=== PATIENT | female | born 1940 | race Caucasian/White ===

== ENCOUNTER 2017-07-10 23:08 | Emergency (ER) | payer MEDICARE ==
--- NOTE | 2017-07-11 00:55 | ER Document Report ---
ED Extremity Problem, Upper - General Mode of Arrival: Ambulatory Information source: Patient, Relative - daughter - HPI Similar symptoms previously: No Recently seen / treated by doctor: No <BUNNY MELVIN - Last Filed: 07/11/17 01:25> <MEGAN SWENSON - Last Filed: 07/11/17 04:34> - General Chief Complaint: Arm Pain Stated Complaint: RIGHT ARM PAIN Time Seen by Provider: 07/11/17 00:53 Notes: Patient is a 77 year old female presenting to the emergency department for pain to her right elbow and forearm. Patient states she was laying in bed with her right arm facing up and she had the television remote in her hand. Patient states she went to move and when she tried to pronate her right arm she had a sharp pain in her ulnar head. Patient states this happened at around 21:00. Patient told her daughter about 30 minutes later and her pain was increasing so they came to the emergency department. Patient keeps her hand facing down to relieve the pain. Patient has taken percocet previously when she broke her right shoulder and had surgery for such. Daughter states she still has trouble with her right shoulder. Patient denies any history of gout. Patient has a history of type II diabetes mellitus and seizures. Patient takes Kepra and Metformin. Patient has fallen multiple times previously but denies any acute injury or trauma. Patient has a history of right knee replacement, right hip replacement, rib fracture, and bilateral shoulder injuries. Patient just moved here this week and is working to get a primary care physician. (BUNNY MELVIN) - Related Data Allergies/Adverse Reactions: hydromorphone [From Dilaudid] Allergy (Verified 07/11/17 00:08) Penicillins Allergy (Verified 07/11/17 00:08) contrast dye Allergy (Uncoded 07/11/17 00:08) Past Medical History - General Information source: Patient - Social History Smoking Status: Former Smoker Cigarette use (# per day): No Chew tobacco use (# tins/day): No Smoking Education Provided: No Frequency of alcohol use: None Drug Abuse: None Family History: None Patient has suicidal ideation: No Patient has homicidal ideation: No Neurological Medical History: Reports: Hx Seizures - Kepra Endocrine Medical History: Reports: Hx Diabetes Mellitus Type 2 - metformin Traumatic Medical History: Reports: Hx Fractures - right hip, ribs, bilateral shoulders Past Surgical History: Reports: Hx Orthopedic Surgery - right hip replacement, right knee replacement, right shoulder <BUNNY MELVIN - Last Filed: 07/11/17 01:25> Review of Systems - Review of Systems Constitutional: No symptoms reported EENT: No symptoms reported Cardiovascular: No symptoms reported Respiratory: No symptoms reported Gastrointestinal: No symptoms reported Genitourinary: No symptoms reported Female Genitourinary: No symptoms reported Musculoskeletal: See HPI, Joint pain Skin: No symptoms reported Hematologic/Lymphatic: No symptoms reported Neurological/Psychological: No symptoms reported -: Yes All other systems reviewed and negative <BUNNY MELVIN - Last Filed: 07/11/17 01:25> Physical Exam <BUNNY MELVIN - Last Filed: 07/11/17 01:25> - Extremities Elbow: Other - The patient keeps her elbow in hyperextension and the shoulder slightly externally rotated. She is exquisitely tender to gently palpate over the radial head region. Any attempts to flex the elbow is met with considerable resistance and pain. There is no tenderness over the olecranon, or the ulnar aspect of the elbow. <MEGAN SWENSON - Last Filed: 07/11/17 04:34> - Vital signs Vitals: Temp Pulse Resp BP Pulse Ox 98.7 F 65 17 146/70 H 99 07/11/17 00:07 07/11/17 00:07 07/11/17 00:07 07/11/17 00:07 07/11/17 00:07 - Notes Notes: GENERAL: Alert, interacts well. Mild distress. HEAD: Normocephalic, atraumatic. EYES: Appear normal. Pupils equal, round, and reactive to light. ENT: Moist mucus membranes, tongue midline. NECK: Full range of motion. Supple. Trachea midline. LUNGS: No respiratory distress. HEART: Regular rate. ABDOMEN: Non-distended. EXTREMITIES: Moves all 4 extremities spontaneously. Normal strength. No edema. Severe pain with flexion or pronation of the right forearm. Tenderness with palpation over the right radial head. Good circulation to the hand. NEUROLOGICAL: Alert and oriented x3. Normal speech. No focal neurological deficits. GCS 15. PSYCH: Normal affect, normal mood. SKIN: Warm, dry, normal turgor. No rashes or lesions noted. (BUNNY MELVIN) Course <BUNNY MELVIN - Last Filed: 07/11/17 01:25> - Laboratory Result Diagrams: 07/11/17 01:50 07/11/17 01:50 - Diagnostic Test Radiology reviewed: Image reviewed, Reports reviewed - No fracture or other abnormality noted. <MEGAN SWENSON - Last Filed: 07/11/17 04:34> - Re-evaluation Re-evalutation: 07/11/17 04:03 The patient is able to flex the elbow at this time although she does frequently try to extend it. The improvement in the exam can only be explained by the Percocet at this time. With the elbow flexed beyond 90 with the shoulder slightly externally rotated she seems comfortable and has no tenderness when the radial head area is lightly palpated. Attempting to place her volar wrist over her abdomen causes considerable pain in the elbow unless the degree of flexion is reduced to about 60. Then it is quite comfortable. We will put a sling on her to hold her at the most comfortable amount of flexion she can tolerate. I have informed her that based on the description of what she was doing with onset of pain, and the initial physical exam, I suspect she possibly had subluxed and sprained the radial head joint region. 07/11/17 04:34 The sling was placed by the nurse, it fit well, it provided good support and comfort for the patient. (MEGAN SWENSON) - Vital Signs Vital signs: Temp Pulse Resp BP Pulse Ox 98.2 F 62 20 148/68 H 99 07/11/17 04:28 07/11/17 04:28 07/11/17 04:28 07/11/17 04:28 07/11/17 04:28 - Laboratory Laboratory results interpreted by me: 07/11/17 07/11/17 01:50 01:50 Hgb 9.5 L Hct 30.4 L MCV 65 L MCH 20.1 L MCHC 31.1 L RDW 17.3 H Plt Count 133 L Band Neutrophils % 1 L ESR 41 H Glucose 120 H AST 43 H Alkaline Phosphatase 258 H Discharge <BUNNY MELVIN - Last Filed: 07/11/17 01:25> <MEGAN SWENSON - Last Filed: 07/11/17 04:34> - Discharge Clinical Impression: Sprain of elbow, right Qualifiers: Encounter type: initial encounter Qualified Code(s): S53.401A - Unspecified sprain of right elbow, initial encounter Condition: Stable Disposition: HOME, SELF-CARE Additional Instructions: Based on the history and physical exam and the way you did improve over time with pain medication, I suspect you sprained the radial head area while you are laying flat and turned your forearm holding the TV remote. Use the sling for support and comfort. Take the pain medication as needed. Follow-up with your doctor in the next 1-2 days if not improving. RETURN TO THE EMERGENCY ROOM IF ANY NEW OR WORSENING SYMPTOMS. Prescriptions: Oxycodone HCl/Acetaminophen [Percocet 5-325 mg Tablet] 1 tab PO ASDIR PRN #10 tablet PRN Reason: Scribe Attestation: 07/11/17 04:08 I personally performed the services described in the documentation, reviewed and edited the documentation which was dictated to the scribe in my presence, and it accurately records my words and actions. (MEGAN SWENSON) Scribe Documentation - Scribe Written by Nemesio:: Nemesio Bhatt 07/11/2017 01:23 acting as scribe for :: Rashaun <BUNNY MELVIN - Last Filed: 07/11/17 01:25>
[2017-07-11] MEDS ORDERED: OXYCODONE-ACETAMINOPHEN 5-325 MG TABLET PO ONE (01:11)
[2017-07-11 02:11] LABS: HEMATOCRIT 30.4 % (36.0-47.0); HEMOGLOBIN 9.5 g/dL (12.0-15.5); HGB HCT DIFFERENCE -1.9; MEAN CORPUSCULAR HEMOGLOBIN 20.1 pg (27.0-33.4); MEAN CORPUSCULAR HGB CONC 31.1 g/dL (32.0-36.0); RED CELL DISTRIBUTION WIDTH 17.3 % (11.5-14.0); WHITE BLOOD COUNT 4.2 10^3/uL (4.0-10.5)
[2017-07-11 02:24] LABS: ALANINE AMINOTRANSFERASE 39 U/L (9-52); ALBUMIN 3.6 g/dL (3.5-5.0); ALKALINE PHOSPHATASE 258 U/L (38-126); ANION GAP 10 (5-19); ASPARTATE AMINO TRANSFERASE 43 U/L (14-36); BILIRUBIN,DIRECT 0.4 mg/dL (0.0-0.4); BILIRUBIN,TOTAL 0.4 mg/dL (0.2-1.3); BLOOD UREA NITROGEN 13 mg/dL (7-20); CARBON DIOXIDE 25 mmol/L (22-30); CHLORIDE 102 mmol/L (98-107); CREATININE RESULT 0.65 mg/dL (0.52-1.25); GLUCOSE 120 mg/dL (75-110); POTASSIUM 4.3 mmol/L (3.6-5.0); SODIUM 137.3 mmol/L (137-145); TOTAL PROTEIN 7.2 g/dL (6.3-8.2); URIC ACID 5.6 mg/dL (2.5-7.5)
[2017-07-11 02:36] LABS: BAND NEUTROPHILS % (MANUAL) 1 % (3-5); BASOPHILS % (MANUAL) 0 % (0-2); EOSINOPHILS % (MANUAL) 0 % (0-6); LYMPHOCYTES % (MANUAL) 23 % (13-45); TOTAL CELLS COUNTED 100
[2017-07-11 02:38] LABS: HYPOCHROMASIA 1+; TOXIC GRANULATION 1+
[2017-07-11 02:39] LABS: ANISOCYTOSIS 1+; MICROCYTOSIS 3+; OVALOCYTES 1+; PLATELET CLUMPS PRESENT; POIKILOCYTOSIS 1+; SCHISTOCYTES 1+
[2017-07-11 02:40] LABS: MEAN CORPUSCULAR VOLUME 65 fl (80-97)
[2017-07-11 02:48] LABS: ERYTHROCYTE SEDIMENTATION RATE 41 mm/hr (0-30)
--- NOTE | 2017-07-11 03:23 | RADIOLOGY REPORT (SQ) ---
EXAM DESCRIPTION: ELBOW RIGHT OVER 2 VIEWS COMPLETED DATE/TIME: 07/11/2017 3:03 am REASON FOR STUDY: pain R radial head,cannot flex/pronate, no injury COMPARISON: None. NUMBER OF VIEWS: Four views. TECHNIQUE: AP, cross-table, and both oblique radiographic images acquired of the right elbow. LIMITATIONS: The patient is not able to flex the elbow. FINDINGS: MINERALIZATION: Normal. BONES: The elbow is hyperextended. No obvious acute fracture. No worrisome bone lesions. JOINT: No obvious effusion. SOFT TISSUES: No soft tissue swelling. No radiopaque foreign body. IMPRESSION: Hyperextended elbow with no radiographic evidence for acute fracture. TECHNICAL DOCUMENTATION: JOB ID: [id number] [employer]- All Rights Reserved
[2017-07-11] MEDS ORDERED: HYDROCODONE/ACETAMINOPHEN 5-325 MG 6 TAB/DSPK PO PRN (04:02)
[2017-07-11 04:29] VITALS: BP 148/68
[2017-07-12 14:47] LABS: PATH REVIEW PATHOLOGIST REVIEWED
== END 2017-07-11 04:10 | disposition home or self-care (01) ==
LOC: ER 23:08
DX: S53.401A Unspecified sprain of right elbow, initial encounter (principal); M79.601 Pain in right arm; X58.XXXA Exposure to other specified factors, initial encounter; E11.9 Type 2 diabetes mellitus without complications; Z87.891 Personal history of nicotine dependence; Z79.4 Long term (current) use of insulin; Z96.641 Presence of right artificial hip joint; Z96.651 Presence of right artificial knee joint; Z96.611 Presence of right artificial shoulder joint
CPT/HCPCS: 99283; 36415; 84550; 85025; 85652; 80053; 73080; A9270 ×2

== ENCOUNTER 2017-12-10 11:26 | Emergency (ER) | payer MEDICARE ==
--- NOTE | 2017-12-10 11:50 | ER Document Report ---
ED Medical Screen (RME) - General Chief Complaint: Weakness Stated Complaint: ABNORMAL LABS Time Seen by Provider: 12/10/17 11:49 Mode of Arrival: Wheelchair Information source: Patient Notes: 77-year-old female referred to the emergency room by PCP because of anemia. TRAVEL OUTSIDE OF THE [place] IN LAST 30 DAYS: No - Related Data Allergies/Adverse Reactions: hydromorphone [From Dilaudid] Allergy (Verified 12/10/17 11:28) Penicillins Allergy (Verified 12/10/17 11:28) contrast dye Allergy (Uncoded 07/11/17 00:08) Past Medical History - Social History Chew tobacco use (# tins/day): No Frequency of alcohol use: None Drug Abuse: None Neurological Medical History: Reports: Hx Seizures - Kepra Endocrine Medical History: Reports: Hx Diabetes Mellitus Type 2 - metformin Renal/ Medical History: Denies: Hx Peritoneal Dialysis Traumatic Medical History: Reports: Hx Fractures - right hip, ribs, bilateral shoulders Past Surgical History: Reports: Hx Orthopedic Surgery - right hip replacement, right knee replacement, right shoulder Physical Exam - Vital signs Vitals: Temp Pulse Resp BP Pulse Ox 98.6 F 76 16 126/58 H 98 12/10/17 11:38 12/10/17 11:38 12/10/17 11:38 12/10/17 11:38 12/10/17 11:38 Course - Vital Signs Vital signs: Temp Pulse Resp BP Pulse Ox 98.6 F 76 16 126/58 H 98 12/10/17 11:38 12/10/17 11:38 12/10/17 11:38 12/10/17 11:38 12/10/17 11:38
[2017-12-10 13:27] LABS: PROTHROMBIN TIME 13.9 SEC (11.4-15.4)
[2017-12-10 13:31] LABS: HEMATOCRIT 20.9 % (36.0-47.0); MEAN CORPUSCULAR HEMOGLOBIN 15.2 pg (27.0-33.4); MEAN CORPUSCULAR HGB CONC 28.9 g/dL (32.0-36.0); PLATELET COUNT 140 10^3/uL (150-450); RED BLOOD COUNT 3.97 10^6/uL (3.72-5.28); RED CELL DISTRIBUTION WIDTH 20.3 % (11.5-14.0); WHITE BLOOD COUNT 4.4 10^3/uL (4.0-10.5)
[2017-12-10 13:41] LABS: ALANINE AMINOTRANSFERASE 45 U/L (9-52); ALBUMIN 3.8 g/dL (3.5-5.0); ALKALINE PHOSPHATASE 141 U/L (38-126); ANION GAP 11 (5-19); ASPARTATE AMINO TRANSFERASE 40 U/L (14-36); BILIRUBIN,DIRECT 0.5 mg/dL (0.0-0.4); BILIRUBIN,TOTAL 0.6 mg/dL (0.2-1.3); BLOOD UREA NITROGEN 13 mg/dL (7-20); CALCIUM 9.3 mg/dL (8.4-10.2); CARBON DIOXIDE 20 mmol/L (22-30); CHLORIDE 105 mmol/L (98-107); GLUCOSE 143 mg/dL (75-110); MEAN CORPUSCULAR VOLUME 53 fl (80-97); POTASSIUM 4.5 mmol/L (3.6-5.0); SODIUM 136.2 mmol/L (137-145); TOTAL PROTEIN 7.3 g/dL (6.3-8.2)
[2017-12-10] MEDS ORDERED: NORMAL SALINE 250 ML IV PRN (13:50)
[2017-12-10 14:05] LABS: ABSOLUTE LYMPHOCYTES# (MANUAL) 0.2 10^3/uL (0.5-4.7); ABSOLUTE NEUTROPHILS# (MANUAL) 4.1 10^3/uL (1.7-8.2); BASOPHILS % (MANUAL) 1 % (0-2); EOSINOPHILS % (MANUAL) 0 % (0-6); HYPOCHROMASIA 2+; LYMPHOCYTES % (MANUAL) 4 % (13-45); MONOCYTES % (MANUAL) 1 % (3-13); OVALOCYTES 2+; PLATELET COMMENT ADEQUATE; POIKILOCYTOSIS 2+; POLYCHROMASIA 1+; ROULEAUX SLIGHT; SCHISTOCYTES SLIGHT; SEGMENTED NEUTROPHILS % (MAN) 94 % (42-78); TEAR DROP CELLS SLIGHT; TOTAL CELLS COUNTED 100; TOXIC GRANULATION 2+
--- NOTE | 2017-12-10 18:55 | ER Document Report ---
ED Dizziness/Weakness - General Chief Complaint: Weakness Stated Complaint: ABNORMAL LABS Time Seen by Provider: 12/10/17 11:49 Mode of Arrival: Wheelchair Notes: Patient is a 77-year-old female who presents to the ER today for low blood levels. Patient's primary care provider told her to come as they natasha blood 2 days ago, got the results back last night and called her this morning stating that her hemoglobin was low. She does not know how low. She has had to have multiple blood transfusions in the past with hemoglobin getting as low as 4. She states that over the past couple of days, 3 days or so that that she has been weak and tired a lot. She denies any bleeding from anywhere. She denies any dark stools. She states "nobody is ever figured out why I have anemia." She denies knowing if it is iron deficiency or not. She drove here today and lives at home. TRAVEL OUTSIDE OF THE [place] IN LAST 30 DAYS: No - Related Data Allergies/Adverse Reactions: hydromorphone [From Dilaudid] Allergy (Verified 12/10/17 11:28) Penicillins Allergy (Verified 12/10/17 11:28) contrast dye Allergy (Uncoded 07/11/17 00:08) Past Medical History - General Information source: Patient - Social History Smoking Status: Former Smoker Chew tobacco use (# tins/day): No Frequency of alcohol use: None Drug Abuse: None Family History: None Patient has suicidal ideation: No Patient has homicidal ideation: No Neurological Medical History: Reports: Hx Seizures - Kepra Endocrine Medical History: Reports: Hx Diabetes Mellitus Type 2 - metformin Renal/ Medical History: Denies: Hx Peritoneal Dialysis Traumatic Medical History: Reports: Hx Fractures - right hip, ribs, bilateral shoulders Past Surgical History: Reports: Hx Orthopedic Surgery - right hip replacement, right knee replacement, right shoulder Review of Systems - Review of Systems Constitutional: See HPI EENT: No symptoms reported Cardiovascular: No symptoms reported Respiratory: No symptoms reported Gastrointestinal: No symptoms reported Genitourinary: No symptoms reported Female Genitourinary: No symptoms reported Musculoskeletal: No symptoms reported Skin: No symptoms reported Hematologic/Lymphatic: See HPI Neurological/Psychological: No symptoms reported Physical Exam - Vital signs Vitals: Temp Pulse Resp BP Pulse Ox 98.6 F 76 16 126/58 H 98 12/10/17 11:38 12/10/17 11:38 12/10/17 11:38 12/10/17 11:38 12/10/17 11:38 - Notes Notes: PHYSICAL EXAMINATION: GENERAL: Pale, tired appearing, but in no acute distress. HEAD: Atraumatic, normocephalic. EYES: Pupils equal round and reactive to light, extraocular movements intact, sclera anicteric, conjunctiva are normal. NECK: Normal range of motion, supple without lymphadenopathy LUNGS: CTAB and equal. No wheezes rales or rhonchi. HEART: Regular rate and rhythm without murmurs ABDOMEN: Soft, no tenderness. No guarding, no rebound BACK: no vertebral tenderness, normal ROM GI/: no CVA tenderness EXTREMITIES: Normal range of motion, no pitting edema. No cyanosis. NEUROLOGICAL: Cranial nerves grossly intact. Normal sensory/motor exams. PSYCH: Normal mood, normal affect. SKIN: Warm, Dry, normal turgor, no rashes or lesions noted Course - Re-evaluation Re-evalutation: 12/10/17 18:48 Patient is coherent and has multiple full conversations with me. Her hemoglobin is 6 today. I did offer admission for blood transfusion or transfusing her here in the emergency department, seeing how she felt afterwards and sending her home. Patient was completely coherent and told me that she would rather go home. She then laid down and was going back to sleep as I left the room. 2 hours after I had the patient and blood was almost ready to start transfusing, granddaughter appears and is instantly angry that she knows nothing. Granddaughter states that the room is dirty and that there is blood in the bed. There are 2 spots of blood from where the nurse started patient's IV that patient is not touching on the bed sheet. Granddaughter tells me that grandmother remembers nothing about our conversation and is unsure why she is going home. I looked at the patient and tried to remind her of our conversation, she is acting differently with granddaughter in the room and says that she does not remember me offering admission. I then did offer admission again stating "I can still call the hospitalist and admit you, that is still an offer, which he like me to do that now?" Granddaughter is angry and states "we do not want to be admitted to this hospital!" Granddaughter then is angry that patient has not eaten in the 5 hours that she has been here total in the emergency department and the patient is a diabetic. I do tell her granddaughter that her sugar on blood work was 142 and that I have only had her for 2 hours, it is not customary for us to order a meal tray for the patient after this amount of time if her sugar is normal. Granddaughter is still very angry and stormed out of the room telling me that I am getting hostile with her. She immediately goes up front to complain. Patient access motor coach tour operator did come into the room and talk to her for approximately 20 minutes about the process and this emergency department and patients. Patient's granddaughter apparently told the patient accepts motor coach tour operator at some point that the patient was supposed to let us know not to speak with her until the granddaughter had arrived. The patient had been here for 5 hours total, 2 hours in the room with me before the granddaughter arrived. On my reevaluation while patient is getting blood and eating her meal tray she is incredibly happy, asking me about my life and my baby, granddaughter is now happy asking me personal questions as well and smiling. - Vital Signs Vital signs: Temp Pulse Resp BP Pulse Ox 98.6 F 66 16 123/63 98 12/10/17 11:38 12/10/17 18:00 12/10/17 18:00 12/10/17 18:00 12/10/17 18:00 - Laboratory Result Diagrams: 12/10/17 12:52 12/10/17 12:52 Laboratory results interpreted by me: 12/10/17 12/10/17 12/10/17 12:52 12:52 12:52 Hgb 6.0 L Hct 20.9 L MCV 53 L MCH 15.2 L MCHC 28.9 L RDW 20.3 H Plt Count 140 L Seg Neuts % (Manual) 94 H Lymphocytes % (Manual) 4 L Monocytes % (Manual) 1 L Abs Lymphs (Manual) 0.2 L Abs Monocytes (Manual) 0.0 L Sodium 136.2 L Carbon Dioxide 20 L Glucose 143 H Direct Bilirubin 0.5 H AST 40 H Alkaline Phosphatase 141 H Crossmatch See Detail Discharge - Discharge Clinical Impression: Anemia Qualifiers: Anemia type: unspecified type Qualified Code(s): D64.9 - Anemia, unspecified Condition: Stable Disposition: HOME, SELF-CARE Additional Instructions: Return immediately for any new or worsening symptoms. Follow up with primary care provider, call tomorrow to make followup appointment.
[2017-12-10 22:46] VITALS: BP 138/53
[2017-12-13 14:24] LABS: PATH REVIEW PATHOLOGIST REVIEWED
== END 2017-12-10 22:37 | disposition home or self-care (01) ==
LOC: ER 11:26
DX: D64.9 Anemia, unspecified (principal); R53.1 Weakness; Z87.891 Personal history of nicotine dependence
CPT/HCPCS: 99285; 86900; 86901; 36415; 36430; 86850; 85025; 85610; 80053; 86920; P9016; J7050

== ENCOUNTER 2018-04-13 10:05 | Inpatient (IN) | payer MEDICARE ==
[2018-04-13] MEDS ORDERED: NORMAL SALINE 250 ML IV PRN ×2 (10:11→16:25)
--- NOTE | 2018-04-13 10:18 | ER Document Report ---
ED Medical Screen (RME) - General Chief Complaint: Abnormal Lab Results Stated Complaint: ABNORMAL LABS Time Seen by Provider: 04/13/18 10:10 Notes: The patient is a 78-year-old female, past medical history chronic anemia, presents from her primary care's office after her hemoglobin was found to be 5 on a blood draw yesterday. She was being seen for SOB and had a chest x-ray, which showed cardiomegaly. She required a blood transfusion 4 months ago. She denies any chest pain, syncope, dark or bloody stools, heavy vaginal bleeding or any other active bleeding. PE: NAD. RRR. Lungs CTAB. I have greeted and performed a rapid initial assessment of this patient. A comprehensive ED assessment and evaluation of the patient, analysis of test results and completion of the medical decision making process will be conducted by additional ED providers. TRAVEL OUTSIDE OF THE [place] IN LAST 30 DAYS: No - Related Data Allergies/Adverse Reactions: hydromorphone [From Dilaudid] Allergy (Verified 04/13/18 10:06) Penicillins Allergy (Verified 04/13/18 10:06) contrast dye Allergy (Uncoded 04/13/18 10:06) Past Medical History Neurological Medical History: Reports: Hx Seizures - Kepra Endocrine Medical History: Reports: Hx Diabetes Mellitus Type 2 - metformin Renal/ Medical History: Denies: Hx Peritoneal Dialysis Traumatic Medical History: Reports: Hx Fractures - right hip, ribs, bilateral shoulders Past Surgical History: Reports: Hx Orthopedic Surgery - right hip replacement, right knee replacement, right shoulder
--- NOTE | 2018-04-13 10:46 | ER Document Report ---
ED General - General Chief Complaint: Abnormal Lab Results Stated Complaint: ABNORMAL LABS Time Seen by Provider: 04/13/18 10:10 Mode of Arrival: Wheelchair Information source: Patient Notes: This is a 78-year-old female with a history of asthma, CHF, arthritis, anemia who presents to the emergency room with dyspnea on exertion. Patient had labs drawn in the outpatient setting a day ago and there was a reported hemoglobin of 5. Patient denies any chest pain. TRAVEL OUTSIDE OF THE [place] IN LAST 30 DAYS: No - HPI Onset: Last week Onset/Duration: Gradual Quality of pain: No pain Severity: None Pain Level: Denies Associated symptoms: Shortness of breath. denies: Chest pain Exacerbated by: Movement Relieved by: Remaining still Similar symptoms previously: Yes Recently seen / treated by doctor: Yes - Related Data Allergies/Adverse Reactions: hydromorphone [From Dilaudid] Allergy (Verified 04/13/18 10:20) Penicillins Allergy (Verified 04/13/18 10:20) contrast dye Allergy (Uncoded 04/13/18 10:20) Past Medical History - General Information source: Patient - Social History Smoking Status: Former Smoker Cigarette use (# per day): No - Quit years ago Chew tobacco use (# tins/day): No Frequency of alcohol use: None Drug Abuse: None Lives with: Other - Grandson Family History: None Patient has suicidal ideation: No Patient has homicidal ideation: No Pulmonary Medical History: Reports: Hx Asthma Neurological Medical History: Reports: Hx Seizures - Kepra Endocrine Medical History: Reports: Hx Diabetes Mellitus Type 2 - metformin Renal/ Medical History: Denies: Hx Peritoneal Dialysis Traumatic Medical History: Reports: Hx Fractures - right hip, ribs, bilateral shoulders Past Surgical History: Reports: Hx Appendectomy, Hx Cholecystectomy, Hx Orthopedic Surgery - right hip replacement, right knee replacement, right shoulder, Hx Tubal Ligation Review of Systems - Review of Systems Constitutional: denies: Chills, Fever EENT: No symptoms reported Cardiovascular: See HPI Respiratory: See HPI Gastrointestinal: No symptoms reported Genitourinary: No symptoms reported Female Genitourinary: No symptoms reported Musculoskeletal: No symptoms reported Skin: No symptoms reported Hematologic/Lymphatic: No symptoms reported Neurological/Psychological: No symptoms reported Physical Exam - Vital signs Vitals: Temp Pulse Resp BP Pulse Ox 98.7 F 70 18 127/67 H 99 04/13/18 10:13 04/13/18 10:13 04/13/18 10:13 04/13/18 10:13 04/13/18 10:13 Notes: Physical exam: GENERAL: The 8-year-old female, alert and oriented 3, no acute distress, she does appear short of breath when she moves in the bed. HEAD: Atraumatic, normocephalic. EYES: Pupils equal round and reactive to light, extraocular movements intact, sclera anicteric, conjunctiva are normal. ENT: TMs normal, nares patent, oropharynx clear without exudates. Moist mucous membranes. NECK: Normal range of motion, supple without obvious mass or JVD. LUNGS: Breath sounds clear to auscultation bilaterally and equal. No wheezes rales or rhonchi. HEART: Regular rate and rhythm without murmurs, rubs or gallops. ABDOMEN: Soft, normoactive bowel sounds. No tenderness to palpation. No guarding, no rebound. No masses appreciated. Rectal: Stool brown, sent for study EXTREMITIES: Normal range of motion, no pitting or edema. No clubbing or cyanosis. NEUROLOGICAL: Cranial nerves II through XII grossly intact. Normal speech, moving all extremities. PSYCH: Normal mood, normal affect. SKIN: Warm, Dry, normal turgor, no rashes or lesions noted. Course - Vital Signs Vital signs: Temp Pulse Resp BP Pulse Ox 98.0 F 70 18 129/57 H 100 04/13/18 14:00 04/13/18 10:13 04/13/18 14:01 04/13/18 14:01 04/13/18 14:01 - Laboratory Result Diagrams: 04/13/18 10:45 04/13/18 10:45 Laboratory results interpreted by me: 04/13/18 04/13/18 04/13/18 10:45 10:45 10:45 Hgb 5.3 L Hct 19.6 L MCV 51 L MCH 13.6 L MCHC 26.9 L RDW 21.2 H Seg Neuts % (Manual) 87 H Lymphocytes % (Manual) 8 L Glucose 132 H AST 46 H NT-Pro-B Natriuret Pep Crossmatch See Detail 04/13/18 10:45 Hgb Hct MCV MCH MCHC RDW Seg Neuts % (Manual) Lymphocytes % (Manual) Glucose AST NT-Pro-B Natriuret Pep 960 H Crossmatch - Diagnostic Test Radiology reviewed: Image reviewed, Reports reviewed - Chest x-ray shows cardiomegaly - EKG Interpretation by Me Rate: Normal - EKG shows atrial fibrillation with a ventricular rate of 67, no acute ST-T wave changes Rhythm: A.Fib Critical Care Note - Critical Care Note Total time excluding time spent on procedures (mins): 60 Discharge - Discharge Clinical Impression: Symptomatic anemia, New onset A. fib Condition: Stable Disposition: ADMITTED INPATIENT Admitting Provider: Hospitalist - Dr Cates/[facility] Admitted: Telemetry
--- NOTE | 2018-04-13 11:02 | RADIOLOGY REPORT (SQ) ---
EXAM DESCRIPTION: CHEST 2 VIEWS COMPLETED DATE/TIME: 04/13/2018 10:42 am REASON FOR STUDY: SOB COMPARISON: None. EXAM PARAMETERS: NUMBER OF VIEWS: two views TECHNIQUE: Digital Frontal and Lateral radiographic views of the chest acquired. RADIATION DOSE: NA LIMITATIONS: none FINDINGS: LUNGS AND PLEURA: No opacities, masses or pneumothorax. No pleural effusion. MEDIASTINUM AND HILAR STRUCTURES: No masses or contour abnormalities. HEART AND VASCULAR STRUCTURES: Cardiomegaly. No overt CHF. BONES: Chronic appearing deformity right 6th rib. Question prior surgery. Correlation with older fi lms may prove helpful. HARDWARE: Operative change both shoulders. OTHER: No other significant finding. IMPRESSION: Cardiomegaly. Lungs clear. TECHNICAL DOCUMENTATION: JOB ID: [id number] [employer]- All Rights Reserved Reading location - IP/workstation name: [email or web address]
[2018-04-13] MEDS ORDERED: ONDANSETRON 4 MG TAB.RAPDIS PO ONE (11:10)
[2018-04-13 11:13] LABS: ALANINE AMINOTRANSFERASE 45 U/L (9-52); ALBUMIN 3.9 g/dL (3.5-5.0); ALKALINE PHOSPHATASE 104 U/L (38-126); ANION GAP 13 (5-19); ASPARTATE AMINO TRANSFERASE 46 U/L (14-36); BILIRUBIN,DIRECT 0.4 mg/dL (0.0-0.4); BILIRUBIN,TOTAL 0.6 mg/dL (0.2-1.3); BLOOD UREA NITROGEN 9 mg/dL (7-20); CALCIUM 8.9 mg/dL (8.4-10.2); CARBON DIOXIDE 23 mmol/L (22-30); CHLORIDE 102 mmol/L (98-107); CREATINE KINASE 34 U/L (30-135); GLUCOSE 132 mg/dL (75-110); TOTAL PROTEIN 7.2 g/dL (6.3-8.2)
[2018-04-13 11:26] LABS: NT PRO BNP 960 pg/mL (<450)
[2018-04-13 11:27] LABS: TROPONIN I < 0.012 ng/mL
[2018-04-13 11:46] LABS: HEMATOCRIT 19.6 % (36.0-47.0); MEAN CORPUSCULAR HEMOGLOBIN 13.6 pg (27.0-33.4); MEAN CORPUSCULAR HGB CONC 26.9 g/dL (32.0-36.0); MEAN CORPUSCULAR VOLUME 51 fl (80-97); PLATELET COUNT 167 10^3/uL (150-450); RED BLOOD COUNT 3.87 10^6/uL (3.72-5.28); RED CELL DISTRIBUTION WIDTH 21.2 % (11.5-14.0)
[2018-04-13 12:03] LABS: FREE T4 (FREE THYROXINE) 1.39 ng/dL (0.78-2.19)
[2018-04-13 12:17] LABS: THYROID STIMULATING HORMONE 3.61 uIU/mL (0.47-4.68)
[2018-04-13 12:24] LABS: HEMOGLOBIN 5.3 g/dL (12.0-15.5)
[2018-04-13 12:27] LABS: ABSOLUTE LYMPHOCYTES# (MANUAL) 0.6 10^3/uL (0.5-4.7); ABSOLUTE MONOCYTES # (MANUAL) 0.4 10^3/uL (0.1-1.4); ABSOLUTE NEUTROPHILS# (MANUAL) 6.1 10^3/uL (1.7-8.2); BASOPHILS % (MANUAL) 0 % (0-2); EOSINOPHILS % (MANUAL) 0 % (0-6); LYMPHOCYTES % (MANUAL) 8 % (13-45); MONOCYTES % (MANUAL) 5 % (3-13); SEGMENTED NEUTROPHILS % (MAN) 87 % (42-78); TOTAL CELLS COUNTED 100
[2018-04-13 12:28] LABS: OVALOCYTES 2+; POIKILOCYTOSIS 2+
[2018-04-13 12:29] LABS: ANISOCYTOSIS 2+; HYPOCHROMASIA 4+; PLATELET COMMENT ADEQUATE; ROULEAUX 1+; TEAR DROP CELLS 1+
[2018-04-13] MEDS ORDERED: IPRATROPIUM/ALBUTEROL 0.5-2.5 MG/3 ML AMPUL NEB PRN (16:07)
[2018-04-13] MEDS ORDERED: ACETAMINOPHEN 325 MG TABLET PO PRN (16:07)
[2018-04-13] MEDS ORDERED: MAGNESIUM HYDROXIDE SUSP 30 ML UDCUP PO PRN (16:14)
[2018-04-13] MEDS ORDERED: ONDANSETRON 4 MG TAB.RAPDIS PO PRN (16:19)
[2018-04-13] MEDS ORDERED: MAG HYDROX/AL HYDROX/SIMETH SUSP 30 ML UDCUP PO PRN (16:19)
[2018-04-13] MEDS ORDERED: DEXTROSE 50%-WATER 25 GM/50 ML DISP.SYRIN IV PRN ×2 (16:31)
[2018-04-13] MEDS ORDERED: GLUCAGON,HUMAN RECOMB 1 MG INJ IM PRN (16:31)
[2018-04-13] MEDS ORDERED: DEXTROSE 40% GEL 15 GM TUBE PO PRN ×2 (16:31)
[2018-04-13] MEDS ORDERED: INSULIN LISPRO 100 UNIT/ML 3 ML VIAL SUBCUT PRN (16:31)
--- NOTE | 2018-04-13 16:53 | PDOC H&P ---
History of Present Illness Admission Date/PCP: 04/13/18 13:29 FCO WARREN PA-C Patient complains of: Generalized weakness History of Present Illness: DESMOND HERNANDEZ is a 78 year old female with a past medical history significant for remote DVT, CVA without continued deficits, epilepsy (not on antiseizure medications; last seizure several years ago), hypertension, and chronic anemia who presented to the emergency department today with a complaint of 3 weeks of dyspnea on exertion and 3-4 days of generalized weakness and fatigue. The patient reports that she was in the emergency department in November of this year and received blood transfusion products at that time. Per patient's grandson, she has had at least 2 other episodes of anemia requiring blood transfusions over the last 5-10 years. Neither of them can recall what additional workup has been done to identify the cause of her anemia. Last colonoscopy approximately 2 years ago and reported to be normal, EGD decades ago with unknown results. Evaluation in the emergency department reveals the patient is in atrial fibrillation (new to patient), normal chest x-ray, hemoglobin of 5.3, mildly elevated proBNP, normal thyroid panel, essentially normal CMP, and a negative occult stool. She is referred to the hospitalist service for observational admission and management of anemia and new onset atrial fibrillation. Past Medical History Cardiac Medical History: Reports: Hypertension Pulmonary Medical History: Reports: Asthma, Chronic Obstructive Pulmonary Disease (COPD) EENT Medical History: Reports: None Neurological Medical History: Reports: Ischemic CVA, Seizures Endocrine Medical History: Reports: Diabetes Mellitus Type 2 Renal/ Medical History: Reports: None Malignancy Medical History: Reports: None GI Medical History: Reports: None Musculoskeltal Medical History: Reports: Arthritis Skin Medical History: Reports: None Psychiatric Medical History: Reports: None Traumatic Medical History: Reports: None Hematology: Reports: Anemia Infectious Medical History: Reports: None Past Surgical History Past Surgical History: Reports: Appendectomy, Cholecystectomy, Orthopedic Surgery - right hip replacement, right knee replacement, right shoulder, Tubal Ligation Social History Information Source: Patient Lives with: Family Smoking Status: Never Smoker Frequency of Alcohol Use: None Hx Recreational Drug Use: No Drugs: None Hx Prescription Drug Abuse: No - Advance Directive Resuscitation Status: Full Code Surrogate healthcare decision maker:: The patient's grandson, [place], Family History Family History: Reviewed & Not Pertinent Parental Family History Reviewed: Yes Children Family History Reviewed: Yes Sibling(s) Family History Reviewed.: Yes Medication/Allergy Home Medications: Aspirin [Aspirin EC] 81 mg PO DAILY 04/13/18 Furosemide 20 mg PO BID 04/13/18 Meloxicam 7.5 mg PO BID 04/13/18 Metformin HCl 1,000 mg PO BID 04/13/18 Multivit-Min/Iron/Folic/Ena386 [Hair, Skin and Nails Tablet] 1 each PO DAILY Oxybutynin Chloride [Ditropan 5 Mg Tablet] 5 mg PO BID 04/13/18 Allergies/Adverse Reactions: hydromorphone [From Dilaudid] Allergy (Verified 04/13/18 15:32) Penicillins Allergy (Verified 04/13/18 15:32) contrast dye Allergy (Uncoded 04/13/18 15:32) Review of Systems Constitutional: PRESENT: fatigue, weakness. ABSENT: chills, fever(s), headache( s), weight gain, weight loss Eyes: ABSENT: visual disturbances Ears: ABSENT: hearing changes Cardiovascular: PRESENT: dyspnea on exertion. ABSENT: chest pain, edema, orthropnea, palpitations Respiratory: ABSENT: cough, hemoptysis Gastrointestinal: ABSENT: abdominal pain, constipation, diarrhea, hematemesis, hematochezia, nausea, vomiting Genitourinary: ABSENT: dysuria, hematuria Musculoskeletal: ABSENT: joint swelling Integumentary: ABSENT: rash, wounds Neurological: PRESENT: weakness. ABSENT: abnormal gait, abnormal speech, confusion, dizziness, focal weakness, syncope Psychiatric: ABSENT: anxiety, depression, homidical ideation, suicidal ideation Endocrine: ABSENT: cold intolerance, heat intolerance, polydipsia, polyuria Hematologic/Lymphatic: ABSENT: easy bleeding, easy bruising Physical Exam Vital Signs: Temp Pulse Resp BP Pulse Ox 98.0 F 70 21 H 148/69 H 100 04/13/18 14:31 04/13/18 10:13 04/13/18 14:31 04/13/18 14:31 04/13/18 14:31 General appearance: PRESENT: no acute distress, cooperative, well-developed, well-nourished, other - Overweight Head exam: PRESENT: atraumatic, normocephalic Eye exam: PRESENT: conjunctiva pale, EOMI, PERRLA. ABSENT: scleral icterus Mouth exam: PRESENT: moist, tongue midline Neck exam: ABSENT: carotid bruit, JVD, lymphadenopathy, thyromegaly Respiratory exam: PRESENT: clear to auscultation jermaine, symmetrical, unlabored. ABSENT: rales, rhonchi, wheezes Cardiovascular exam: PRESENT: irregular rhythm. ABSENT: diastolic murmur, rubs , systolic murmur Pulses: PRESENT: normal dorsalis pedis pul Vascular exam: PRESENT: normal capillary refill GI/Abdominal exam: PRESENT: normal bowel sounds, soft. ABSENT: distended, guarding, mass, organolmegaly, rebound, tenderness Rectal exam: PRESENT: deferred Extremities exam: PRESENT: full ROM. ABSENT: calf tenderness, clubbing, pedal edema Neurological exam: PRESENT: alert, awake, oriented to person, oriented to place , oriented to time, oriented to situation, CN II-XII grossly intact. ABSENT: motor sensory deficit Psychiatric exam: PRESENT: appropriate affect, normal mood. ABSENT: homicidal ideation, suicidal ideation Skin exam: PRESENT: dry, intact, pallor, warm. ABSENT: cyanosis, rash Results Impressions: Chest X-Ray 04/13/18 10:19 IMPRESSION: Cardiomegaly. Lungs clear. Assessment & Plan - Diagnosis (1) Anemia Qualifiers: Anemia type: unspecified type Qualified Code(s): D64.9 - Anemia, unspecified Is this a current diagnosis for this admission?: Yes Plan: Symptomatic anemia; patient reports dyspnea on exertion 3 weeks with progressively worsening generalized weakness 3-4 days. The patient reports several incidences of anemia requiring blood transfusions; most recently in November when she received 2 units PRBC in our emergency department. Occult stool negative. The patient is admitted to the telemetry floor. She has received 1 unit packed red blood cells by emergency department; will order 2 additional units for total of 3 units. Will obtain urinalysis to assess for hematuria. We will obtain occult stool 2. Patient is placed on twice daily PPI. Anemia panel is pending. Consider consultation with hematology. The registered dietitian is consulted for dietary recommendations. Fall precautions. PT/OT evaluation. (2) Generalized weakness Is this a current diagnosis for this admission?: Yes Plan: Secondary to profound anemia. Plan as above. (3) Atrial fibrillation Qualifiers: Atrial fibrillation type: unspecified Qualified Code(s): I48.91 - Unspecified atrial fibrillation Is this a current diagnosis for this admission?: Yes Plan: New to patient; during previous emergency department visit in November 2017, patient was in sinus rhythm. Atrial fibrillation may be a result of significant anemia. She is rhythm unaware. The patient does not take antihypertensive medications. She does routinely take baby aspirin. [id number] score: 10.8% yearly stroke risk. HAS-BLED score: 8.9% (high risk) for major bleeding events. Will defer chronic anticoagulation at this time as the patient currently has a Hgb of 5.3 with unconfirmed cause of anemia. Patient is hypertensive (148/69). Patient with history of asthma. Therefore; will start po diltiazem. (4) Diabetes mellitus type 2 in obese Is this a current diagnosis for this admission?: Yes Plan: The patient is a type II diabetic who takes metformin as outpatient. Will hold metformin while inpatient. Consistent carb diet. Accu-Cheks before meals and at bedtime with Humalog for sliding scale coverage. We will ask the registered dietitian to meet with the patient. We will also assess hemoglobin A1c; in a patient her age, she may not require continued anti-hyperglycemics. - Time Time Spent: 50 to 70 Minutes Smoking Cessation Education: 3 to 10 minutes Anticipated discharge: Home
[2018-04-13] MEDS: OXYBUTYNIN CHLORIDE 5 MG TABLET PO SCH (18:41)
[2018-04-13] MEDS: DOCUSATE SODIUM 100 MG CAPSULE PO SCH (18:41)
[2018-04-13 21:08] LABS: APPEARANCE,URINE CLEAR; BILIRUBIN,URINE NEGATIVE (NEGATIVE); COLOR,URINE YELLOW; GLUCOSE, URINE NEGATIVE (NEGATIVE); KETONES,URINE NEGATIVE (NEGATIVE); LEUKOCYTE ESTERASE,URINE TRACE (NEGATIVE); NITRITE,URINE NEGATIVE (NEGATIVE); PROTEIN,URINE NEGATIVE (NEGATIVE); URINE SPECIFIC GRAVITY 1.008; UROBILINOGEN,URINE NEGATIVE mg/dL (<2.0)
[2018-04-13] MEDS: DILTIAZEM HCL 30 MG TABLET PO SCH (21:50)
[2018-04-13] MEDS: FAMOTIDINE 20 MG TABLET PO SCH (21:51)
--- NOTE | 2018-04-13 22:14 | EKG REPORT ---
SEVERITY:- ABNORMAL ECG - BASELINE ARTIFACT CAN NOT R/O ATRIAL FIBRILLATION, REC REPEAT EKG VENTRICULAR PREMATURE COMPLEX INTERPOLATED VENTRICULAR PREMATURE COMPLEX BORDERLINE LEFT AXIS DEVIATION BORDERLINE R WAVE PROGRESSION, ANTERIOR LEADS : Confirmed by: Johnathan Cardozo 13-Apr-2018 22:13:13
[2018-04-14] MEDS: DILTIAZEM HCL 30 MG TABLET PO SCH ×3 (06:25→21:32)
[2018-04-14 07:44] LABS: ABSOLUTE RETICS # 0.077 10^6/uL (0.028-0.122); HEMATOCRIT 24.9 % (36.0-47.0); MEAN CORPUSCULAR HGB CONC 31.4 g/dL (32.0-36.0); PLATELET COUNT 114 10^3/uL (150-450); RED BLOOD COUNT 4.12 10^6/uL (3.72-5.28); RED CELL DISTRIBUTION WIDTH 36.6 % (11.5-14.0); RETICULOCYTE COUNT (AUTO) 1.86 % (0.66-2.85); WHITE BLOOD COUNT 5.1 10^3/uL (4.0-10.5)
[2018-04-14 07:46] LABS: MEAN CORPUSCULAR VOLUME 60 fl (80-97)
[2018-04-14 07:52] LABS: HEMOGLOBIN 7.8 g/dL (12.0-15.5)
[2018-04-14 07:57] LABS: ANION GAP 10 (5-19); BLOOD UREA NITROGEN 8 mg/dL (7-20); CALCIUM 8.5 mg/dL (8.4-10.2); CARBON DIOXIDE 26 mmol/L (22-30); CHLORIDE 106 mmol/L (98-107); GLUCOSE 106 mg/dL (75-110); POTASSIUM 3.9 mmol/L (3.6-5.0); SODIUM 141.8 mmol/L (137-145)
[2018-04-14 08:34] LABS: FERRITIN 6.67 ng/mL (11.1-264.0)
[2018-04-14] MEDS: OXYBUTYNIN CHLORIDE 5 MG TABLET PO SCH ×2 (10:09→17:26)
[2018-04-14] MEDS: DOCUSATE SODIUM 100 MG CAPSULE PO SCH ×2 (10:09→17:26)
[2018-04-14] MEDS: FAMOTIDINE 20 MG TABLET PO SCH ×2 (10:09→21:32)
[2018-04-14 14:22] LABS: HEMATOCRIT 25.1 % (36.0-47.0); MEAN CORPUSCULAR HEMOGLOBIN 18.8 pg (27.0-33.4); MEAN CORPUSCULAR HGB CONC 31.2 g/dL (32.0-36.0); MEAN CORPUSCULAR VOLUME 60 fl (80-97); PLATELET COUNT 131 10^3/uL (150-450); RED BLOOD COUNT 4.16 10^6/uL (3.72-5.28); RED CELL DISTRIBUTION WIDTH 35.8 % (11.5-14.0); WHITE BLOOD COUNT 5.8 10^3/uL (4.0-10.5)
[2018-04-14 14:45] LABS: HEMOGLOBIN 7.8 g/dL (12.0-15.5)
[2018-04-14] MEDS ORDERED: FERUMOXYTOL 510 MG in NORMAL SALINE 100 ML IV ONE (15:00)
--- NOTE | 2018-04-14 15:31 | PDOC PROGRESS REPORT ---
Subjective Progress Note for:: 04/14/18 Subjective:: DESMOND HERNANDEZ is a 78 year old female with a past medical history significant for remote DVT, CVA without continued deficits, epilepsy (not on antiseizure medications; last seizure several years ago), hypertension, and chronic anemia who was admitted on 04/13/18 for profound anemia and new atrial fibrillation. Patient is seen on afternoon rounds. She received total of 3 units packed red blood cells overnight. She reports that she does not feel as fatigued today, however, continues to have generalized weakness and mild dyspnea. She denies fever, chills, cough, chest pain, palpitations, orthopnea. She does endorse left lower leg edema and discomfort. Reason For Visit: ANEMIA,AFIB Physical Exam Vital Signs: Temp Pulse Resp BP Pulse Ox 98.3 F 58 L 16 122/66 98 04/14/18 11:13 04/14/18 11:13 04/14/18 11:13 04/14/18 11:13 04/14/18 11:13 Intake & Output 04/13/18 04/14/18 04/15/18 06:59 06:59 06:59 Intake Total 1182 Output Total 350 Balance 832 Weight 83 kg General appearance: PRESENT: no acute distress, hard of hearing, well-developed , well-nourished Head exam: PRESENT: atraumatic, normocephalic Eye exam: PRESENT: conjunctiva pink, EOMI, PERRLA. ABSENT: scleral icterus Ear exam: PRESENT: normal external ear exam Mouth exam: PRESENT: moist, tongue midline Teeth exam: PRESENT: poor dentation Neck exam: ABSENT: carotid bruit, JVD, lymphadenopathy, thyromegaly Respiratory exam: PRESENT: rhonchi, symmetrical, unlabored. ABSENT: rales, wheezes Cardiovascular exam: PRESENT: RRR, +S1, +S2, systolic murmur. ABSENT: diastolic murmur, rubs Pulses: PRESENT: normal dorsalis pedis pul Vascular exam: PRESENT: normal capillary refill GI/Abdominal exam: PRESENT: normal bowel sounds, soft. ABSENT: distended, guarding, mass, organolmegaly, rebound, tenderness Rectal exam: PRESENT: deferred Extremities exam: PRESENT: full ROM, +2 edema - Left lower leg, slightly tender with palpation. No erythema or skin breakdown noted.. ABSENT: calf tenderness , clubbing, pedal edema Neurological exam: PRESENT: alert, awake, oriented to person, oriented to place , oriented to time, oriented to situation, CN II-XII grossly intact, other - Slightly forgetful, reorients quickly. ABSENT: motor sensory deficit Psychiatric exam: PRESENT: appropriate affect, normal mood. ABSENT: homicidal ideation, suicidal ideation Skin exam: PRESENT: dry, intact, warm. ABSENT: cyanosis, rash Results Laboratory Results: 04/14/18 13:54 04/14/18 07:10 04/13/18 04/14/18 04/14/18 20:42 07:10 07:10 WBC 5.1 RBC 4.12 Hgb 7.8 L D Hct 24.9 L MCV 60 L D MCH 19.0 L MCHC 31.4 L RDW 36.6 H Plt Count 114 L Retic Count (auto) 1.86 Absolute Retic 0.077 Sodium 141.8 Potassium 3.9 Chloride 106 Carbon Dioxide 26 Anion Gap 10 BUN 8 Creatinine 0.59 Est GFR ( Amer) > 60 Est GFR (Non-Af Amer) > 60 Glucose 106 Calcium 8.5 Iron 26.0 L TIBC 457 H % Saturation 6 Ferritin 6.67 L Vitamin B12 335.0 Folate 17.20 Urine Color YELLOW Urine Appearance CLEAR Urine pH 7.0 Ur Specific [place] 1.008 Urine Protein NEGATIVE Urine Glucose (UA) NEGATIVE Urine Ketones NEGATIVE Urine Blood NEGATIVE Urine Nitrite NEGATIVE Ur Leukocyte Esterase TRACE H Urine WBC (Auto) 3 04/14/18 13:54 WBC 5.8 RBC 4.16 Hgb 7.8 L Hct 25.1 L MCV 60 L MCH 18.8 L MCHC 31.2 L RDW 35.8 H Plt Count 131 L Retic Count (auto) Absolute Retic Sodium Potassium Chloride Carbon Dioxide Anion Gap BUN Creatinine Est GFR ( Amer) Est GFR (Non-Af Amer) Glucose Calcium Iron TIBC % Saturation Ferritin Vitamin B12 Folate Urine Color Urine Appearance Urine pH Ur Specific [place] Urine Protein Urine Glucose (UA) Urine Ketones Urine Blood Urine Nitrite Ur Leukocyte Esterase Urine WBC (Auto) Impressions: Chest X-Ray 04/13/18 10:19 IMPRESSION: Cardiomegaly. Lungs clear. Assessment & Plan - Diagnosis (1) Anemia Qualifiers: Anemia type: unspecified type Qualified Code(s): D64.9 - Anemia, unspecified Is this a current diagnosis for this admission?: Yes Plan: Hemoglobin is improved following 3 units PRBCs. Patient was admitted with symptomatic anemia; patient reports dyspnea on exertion 3 weeks with progressively worsening generalized weakness 3-4 days. The patient reports several incidences of anemia requiring blood transfusions; most recently in November when she received 2 units PRBC in our emergency department. Urinalysis negative for hematuria. Occult stool negative. 5.3--> 7.8--> 7.8 Iron 26, TIBC 457, ferritin 6.67 The patient is admitted to the telemetry floor. She has received 3 units packed red blood cells. We will obtain occult stool 2. We will continue PPI. Heme/Onc is consulted; appreciate Dr. Camp's recommendations. Will provide Feraheme x1. Initiated oral iron supplementation The registered dietitian is consulted for dietary recommendations. Fall precautions. PT/OT evaluation. (2) Generalized weakness Is this a current diagnosis for this admission?: Yes Plan: Secondary to profound anemia. Plan as above. (3) Atrial fibrillation Qualifiers: Atrial fibrillation type: unspecified Qualified Code(s): I48.91 - Unspecified atrial fibrillation Is this a current diagnosis for this admission?: Yes Plan: Currently in sinus rhythm. Upon arrival to the emergency department, the patient was noted to be in atrial fibrillation. This is new to the patient; during previous emergency department visit in November 2017, patient was in sinus rhythm. Atrial fibrillation may be a result of significant anemia. She is rhythm unaware. [id number] score: 10.8% yearly stroke risk. HAS-BLED score: 8.9% (high risk) for major bleeding events. Will defer chronic anticoagulation at this time as the patient currently has a Hgb of 5.3 with unconfirmed cause of anemia. Echocardiogram is pending. Patient is hypertensive (148/69). Patient with history of asthma. Therefore; she was started on po diltiazem. Have resumed baby aspirin; will monitor closely for bleeding. I believe that the patient's anemia is related to chronic iron deficiency and that she does not likely have active bleeding. We will continue to monitor for GI losses as above. After evaluation by Dr. Camp, will need to discuss further with the patient ( and family members) the risks and benefits of chronic anticoagulation. Would advise against this given the patient's age, weakness, history of falls, and tendency for low hemoglobin. (4) Diabetes mellitus type 2 in obese Is this a current diagnosis for this admission?: Yes Plan: The patient is a type II diabetic who takes metformin as outpatient. Will hold metformin while inpatient. Hemoglobin A1c is 5.8%. Per patient of her age and life expectancy, less than 8 % would be acceptable. Consistent carb diet. Accu-Cheks before meals and at bedtime with Humalog for sliding scale coverage. We will ask the registered dietitian to meet with the patient. We will discuss with the patient and her family members option of reduced dose/ discontinuation of diabetic medications to prevent hypoglycemia in the elderly. (5) Lower leg pain Qualifiers: Laterality: left Qualified Code(s): M79.662 - Pain in left lower leg Is this a current diagnosis for this admission?: Yes Plan: The patient reports left lower leg tenderness and edema. She states that the discomfort developed overnight. She believes she has a history of DVTs. Her left calf is noted to be more edematous to her right. This may be related to holding Lasix initially and dependency edema after receiving IV fluids and blood products. We will obtain Doppler U/S. Will resume lasix; 20 mg po daily
--- NOTE | 2018-04-14 16:09 | PDOC CONSULTATION ---
Consultation Consult Date: 04/14/18 Consult reason:: Hematology/Oncology consultation was requested for patient with anemia History of Present Illness Admission Date/PCP: 04/13/18 13:29 [facility]CO WARREN PA-C History of Present Illness: DESMOND HERNANDEZ is a 78 year old female who states that she recently moved here from [place] to live with her grandchildren. She states that she does not have a very good memory and looks to her grandchildren to remember most things. They are not currently available at bedside. She cannot remember when she was first told that she was anemic, but believes it was last year. She has had blood transfusions 3 times for the anemia, but has never had a work-up as to the cause. She states that the first day she was in the hospital she felt the best. She is not feeling as well today, but still better than prior to hospitalization. She states that when her blood counts are low, she has breathing problems, she is too weak to walk, and has some chest discomfort. She has not had a colonoscopy for many years, but has been seen by all of her doctors recently, but no one could tell her why she was having difficultly. She denies any evidence of bleeding. No blood in stool. She eats a regular diet with some meat. On admission, her HGB was 5.3 with a ferritin of 6.67. She is heme negative stool x 1. She received both blood and iron infusions and is now on oral iron supplements as well. Past Medical History Cardiac Medical History: Reports: Hypertension Pulmonary Medical History: Reports: Asthma, Chronic Obstructive Pulmonary Disease (COPD) EENT Medical History: Reports: None Neurological Medical History: Reports: Ischemic CVA, Seizures Endocrine Medical History: Reports: Diabetes Mellitus Type 2 Renal/ Medical History: Reports: None Malignancy Medical History: Reports: None GI Medical History: Reports: None Musculoskeltal Medical History: Reports: Arthritis Skin Medical History: Reports: None Psychiatric Medical History: Reports: None Traumatic Medical History: Reports: Other - Multiple broken bones in the past Hematology: Reports: Anemia Infectious Medical History: Reports: None Past Surgical History Past Surgical History: Reports: Appendectomy, Cholecystectomy, Orthopedic Surgery - right hip replacement, right knee replacement, right shoulder, Tubal Ligation Social History Lives with: Family Smoking Status: Former Smoker Last Time Smoked: 30 years ago Frequency of Alcohol Use: None Hx Recreational Drug Use: No Drugs: None Hx Prescription Drug Abuse: No Past Social History Note: She is . There are 2 dogs in the home. She is estranged from her son, but lives with her grandchildren and great-grandchildren. - Advance Directive Resuscitation Status: Full Code Family History Parental Family History Reviewed: Yes - Mother of uterine cancer. Father of [place] Children Family History Reviewed: Yes Sibling(s) Family History Reviewed.: Yes Medication/Allergy Home Medications: Aspirin [Aspirin EC] 81 mg PO DAILY 04/13/18 Furosemide 20 mg PO BID 04/13/18 Meloxicam 7.5 mg PO BID 04/13/18 Metformin HCl 1,000 mg PO BID 04/13/18 Multivit-Min/Iron/Folic/Wpp533 [Hair, Skin and Nails Tablet] 1 each PO DAILY Oxybutynin Chloride [Ditropan 5 Mg Tablet] 5 mg PO BID 04/13/18 Allergies/Adverse Reactions: hydromorphone [From Dilaudid] Allergy (Verified 04/13/18 15:32) Penicillins Allergy (Verified 04/13/18 15:32) contrast dye Allergy (Uncoded 04/13/18 15:32) Review of Systems Constitutional: ABSENT: fever(s), headache(s) Eyes: ABSENT: visual disturbances Ears: ABSENT: hearing changes Nose, Mouth, and Throat: ABSENT: headache(s), sore throat Cardiovascular: PRESENT: dyspnea on exertion, edema Respiratory: PRESENT: dyspnea Gastrointestinal: ABSENT: constipation, diarrhea, nausea, vomiting Genitourinary: ABSENT: dysuria Musculoskeletal: PRESENT: muscle weakness Integumentary: ABSENT: rash Neurological: PRESENT: memory loss, weakness Psychiatric: ABSENT: anxiety, depression Hematologic/Lymphatic: ABSENT: lymphadenopathy Physical Exam Vital Signs: Temp Pulse Resp BP Pulse Ox 98.3 F 58 L 16 122/66 98 04/14/18 11:13 04/14/18 11:13 04/14/18 11:13 04/14/18 11:13 04/14/18 11:13 Intake & Output 04/13/18 04/14/18 04/15/18 06:59 06:59 06:59 Intake Total 1182 Output Total 350 Balance 832 Weight 83 kg General appearance: PRESENT: well-developed, well-nourished Exam: 78 year old female. Head exam: PRESENT: atraumatic, normocephalic Eye exam: PRESENT: PERRLA Ear exam: PRESENT: normal external ear exam Mouth exam: PRESENT: tongue midline Teeth exam: ABSENT: dental caries Neck exam: ABSENT: lymphadenopathy, tenderness Respiratory exam: PRESENT: unlabored, wheezes Cardiovascular exam: PRESENT: RRR. ABSENT: systolic murmur Pulses: PRESENT: normal dorsalis pedis pul GI/Abdominal exam: PRESENT: soft. ABSENT: tenderness Extremities exam: ABSENT: pedal edema Musculoskeletal exam: PRESENT: normal inspection Neurological exam: PRESENT: alert, awake, other - [place] movements of face and arms. Focused psych exam: PRESENT: restlessness Skin exam: PRESENT: normal color Results Laboratory Results: 04/14/18 13:54 04/14/18 07:10 04/13/18 04/14/18 04/14/18 20:42 07:10 07:10 WBC 5.1 RBC 4.12 Hgb 7.8 L D Hct 24.9 L MCV 60 L D MCH 19.0 L MCHC 31.4 L RDW 36.6 H Plt Count 114 L Retic Count (auto) 1.86 Absolute Retic 0.077 Sodium 141.8 Potassium 3.9 Chloride 106 Carbon Dioxide 26 Anion Gap 10 BUN 8 Creatinine 0.59 Est GFR ( Amer) > 60 Est GFR (Non-Af Amer) > 60 Glucose 106 Calcium 8.5 Iron 26.0 L TIBC 457 H % Saturation 6 Ferritin 6.67 L Vitamin B12 335.0 Folate 17.20 Urine Color YELLOW Urine Appearance CLEAR Urine pH 7.0 Ur Specific [place] 1.008 Urine Protein NEGATIVE Urine Glucose (UA) NEGATIVE Urine Ketones NEGATIVE Urine Blood NEGATIVE Urine Nitrite NEGATIVE Ur Leukocyte Esterase TRACE H Urine WBC (Auto) 3 04/14/18 13:54 WBC 5.8 RBC 4.16 Hgb 7.8 L Hct 25.1 L MCV 60 L MCH 18.8 L MCHC 31.2 L RDW 35.8 H Plt Count 131 L Retic Count (auto) Absolute Retic Sodium Potassium Chloride Carbon Dioxide Anion Gap BUN Creatinine Est GFR ( Amer) Est GFR (Non-Af Amer) Glucose Calcium Iron TIBC % Saturation Ferritin Vitamin B12 Folate Urine Color Urine Appearance Urine pH Ur Specific [place] Urine Protein Urine Glucose (UA) Urine Ketones Urine Blood Urine Nitrite Ur Leukocyte Esterase Urine WBC (Auto) Impressions: Chest X-Ray 04/13/18 10:19 IMPRESSION: Cardiomegaly. Lungs clear. Assessment & Plan - Diagnosis (1) Anemia Qualifiers: Anemia type: iron deficiency Iron deficiency anemia type: unspecified iron deficiency Qualified Code(s): D50.9 - Iron deficiency anemia, unspecified Is this a current diagnosis for this admission?: Yes Plan: She has received pRBCs, IV iron and is now on oral iron. Her HGB is improved but remains quite low. It may take several weeks for her HGB to improve with the iron. I have explained that we still are unsure why she has iron deficiency. This may be an inability to absorb oral iron, but she appears to have good dietary intake, or due to chronic loss. She has not seen any evidence of blood loss. Her stool is Heme negative. However, consideration should be given to possible GI evaluation to rule out occult bleeding. I would like to continue to follow her over time to rule out other causes of anemia as well if she does not improve. - Plan Summary Plan Summary: Thank you for this consultation. I will continue to follow her. Please call for questions.
[2018-04-14] MEDS: FUROSEMIDE 20 MG TABLET PO SCH (17:26)
[2018-04-14] MEDS: FERROUS SULFATE 325 MG TABLET PO SCH (17:27)
--- NOTE | 2018-04-14 20:40 | XCELERA REPORT ---
[address] [address] Transthoracic Echocardiogram Report Name: DESMOND HERNANDEZ Age: 78 yrs Gender: Female : 1940 Patient Status: Inpatient Patient Location: [address] [place] [address] Study Date: 04/14/2018 02:55 PM Procedure: A complete two-dimensional transthoracic echocardiogram was performed (2D, M-mode, spectral and color flow Doppler). The study was technically adequate with some images being suboptimal in quality. Reason For Study: new afib Ordering Physician: DELON SNEED Performed By: Desiree Harper Interpretation Summary The left ventricular ejection fraction is normal. Doppler measurements suggest pseudonormalized left ventricular relaxation, which is associated with grade II/IV or mild to moderate diastolic dysfunction There is mild concentric left ventricular hypertrophy. The left ventricle is grossly normal size. Wall motion cannot be accurately commented on, but no definite regional wall motion abnormalities noted. The right ventricular systolic function is normal. The right atrium is mildly dilated. The left atrium is moderately dilated. There is a trace amount of mitral regurgitation There is no mitral valve stenosis. There is no aortic valve stenosis No aortic regurgitation is present. There is a trace to mild amount of tricuspid regurgitation Tricuspid regurgitation jet envelope not well defined to measure RV systolic pressure accurately. The aortic root is not well visualized. The inferior vena cava appeared normal and decreased > 50% with respiration (RAP 5-10 mmHg) There is no pericardial effusion. MMode/2D Measurements & Calculations RVDd: 3.7 cm LVIDd: 5.1 cmFS: 33.3 % Ao root diam: 2.7 cm IVSd: 1.0 cm LVIDs: 3.4 cmEDV(Teich): 121.8 ml Ao root area: 5.9 cm2 LVPWd: 1.3 cmESV(Teich): 46.7 ml EF(Teich): 61.6 % LVOT diam: 1.7 cm LVOT area: 2.1 cm2 Doppler Measurements & Calculations MV E max katey: MV dec slope: Ao V2 max: LV V1 max P.0 cm/sec 230.3 cm/sec 3.9 mmHg MV A max katey: 488.1 cm/sec2 Ao max PG: LV V1 max: 144.1 cm/sec MV dec time: 21.4 mmHg 98.9 cm/sec MV E/A: 0.95 0.28 sec Ao V2 mean: 173.1 cm/sec Ao mean P.6 mmHg Ao V2 VTI: 58.7 cm STEVE(V,D): 0.92 cm2 PA V2 max: TR max katey: 150.8 cm/sec 292.1 cm/sec PA max P.1 mmHgTR max P.0 mmHg Left Ventricle The left ventricle is grossly normal size. There is mild concentric left ventricular hypertrophy. The left ventricular ejection fraction is normal. Doppler measurements suggest pseudonormalized left ventricular relaxation, which is associated with grade II/IV or mild to moderate diastolic dysfunction. Wall motion cannot be accurately commented on, but no definite regional wall motion abnormalities noted. Right Ventricle The right ventricle is grossly normal size. There is normal right ventricular wall thickness. The right ventricular systolic function is normal. Atria The right atrium is mildly dilated. The left atrium is moderately dilated. Interarterial septum not well visualized and not well dopplered. Cannot comment on ASD/PFO presence. Mitral Valve There is mild mitral leaflet calcification. There is mild mitral annular calcification. There is no mitral valve stenosis. There is a trace amount of mitral regurgitation. Aortic Valve The aortic valve is not well visualized secondary to technical limitations. The aortic valve is trileaflet. There is no aortic valve stenosis. No aortic regurgitation is present. Tricuspid Valve The tricuspid valve is not well visualized secondary to technical limitations. There is no tricuspid stenosis. There is a trace to mild amount of tricuspid regurgitation. Tricuspid regurgitation jet envelope not well defined to measure RV systolic pressure accurately. Pulmonic Valve The pulmonic valve is not well visualized. Great Vessels The aortic root is not well visualized. The inferior vena cava appeared normal and decreased > 50% with respiration (RAP 5-10 mmHg). Effusions There is no pericardial effusion. : DELON SNEED > Johnathan Cardozo
[2018-04-15] MEDS: DILTIAZEM HCL 30 MG TABLET PO SCH ×3 (05:53→22:23)
[2018-04-15 06:51] LABS: HEMATOCRIT 25.7 % (36.0-47.0); HEMOGLOBIN 8.1 g/dL (12.0-15.5); MEAN CORPUSCULAR HEMOGLOBIN 19.1 pg (27.0-33.4); MEAN CORPUSCULAR HGB CONC 31.3 g/dL (32.0-36.0); MEAN CORPUSCULAR VOLUME 61 fl (80-97); PLATELET COUNT 132 10^3/uL (150-450); RED BLOOD COUNT 4.21 10^6/uL (3.72-5.28); RED CELL DISTRIBUTION WIDTH 36.6 % (11.5-14.0); WHITE BLOOD COUNT 5.3 10^3/uL (4.0-10.5)
[2018-04-15] MEDS ORDERED: LANSOPRAZOLE 15 MG TAB.RAP.DR PO ONE (08:00)
--- NOTE | 2018-04-15 08:33 | PDOC PROGRESS REPORT ---
Subjective Progress Note for:: 04/15/18 Subjective:: Patient states that she is feeling better, but still not strong enough to go home. She is eating well, but is not walking well yet without assistance. She had no reaction to the IV iron. ROS: No dyspnea. No nausea. Positive Lower Leg Pain and numbness. Reason For Visit: IRON DEFICIENCY ANEMIA,ATRIAL FIBRILLATION Physical Exam Vital Signs: Temp Pulse Resp BP Pulse Ox 98.3 F 67 17 153/73 H 98 04/15/18 03:54 04/15/18 03:54 04/15/18 00:03 04/15/18 03:54 04/15/18 03:54 Intake & Output 04/14/18 04/15/18 04/16/18 06:59 06:59 06:59 Intake Total 1182 917 Output Total 350 2900 Balance 832 Weight 83 kg 84.3 kg General appearance: PRESENT: no acute distress, well-developed, well-nourished Head exam: PRESENT: normocephalic Respiratory exam: PRESENT: clear to auscultation jermaine, unlabored Cardiovascular exam: PRESENT: irregular rhythm, systolic murmur GI/Abdominal exam: PRESENT: soft. ABSENT: tenderness Focused psych exam: PRESENT: psychomotor agitation - Chorea type movements. Skin exam: PRESENT: normal color Results Laboratory Results: 04/15/18 05:43 04/14/18 07:10 04/14/18 04/14/18 04/14/18 07:10 13:54 19:40 WBC 5.8 RBC 4.16 Hgb 7.8 L Hct 25.1 L MCV 60 L MCH 18.8 L MCHC 31.2 L RDW 35.8 H Plt Count 131 L Sodium 141.8 Potassium 3.9 Chloride 106 Carbon Dioxide 26 Anion Gap 10 BUN 8 Creatinine 0.59 Est GFR ( Amer) > 60 Est GFR (Non-Af Amer) > 60 Glucose 106 Calcium 8.5 Iron 26.0 L TIBC 457 H % Saturation 6 Ferritin 6.67 L Vitamin B12 335.0 Folate 17.20 Stool Occult Blood POSITIVE 04/15/18 05:43 WBC 5.3 RBC 4.21 Hgb 8.1 L Hct 25.7 L MCV 61 L MCH 19.1 L MCHC 31.3 L RDW 36.6 H Plt Count 132 L Sodium Potassium Chloride Carbon Dioxide Anion Gap BUN Creatinine Est GFR ( Amer) Est GFR (Non-Af Amer) Glucose Calcium Iron TIBC % Saturation Ferritin Vitamin B12 Folate Stool Occult Blood Impressions: Chest X-Ray 04/13/18 10:19 IMPRESSION: Cardiomegaly. Lungs clear. Assessment & Plan - Diagnosis (1) Anemia Qualifiers: Anemia type: iron deficiency Iron deficiency anemia type: unspecified iron deficiency Qualified Code(s): D50.9 - Iron deficiency anemia, unspecified Is this a current diagnosis for this admission?: Yes Plan: Continue to monitor CBC. Consider transfusion of another unit pRBCs based on symptoms. Otherwise, I will plan to see her back in the office in a few weeks and repeat CBC, Ferritin at that time. (2) Generalized weakness Is this a current diagnosis for this admission?: Yes Plan: She may need Rehab stay. Unsure what discharge plans are. I have encouraged her to walk with assistance today. - Plan Summary Plan Summary: Dr. Camp will be available over the weekend. Please call if needed, otherwise, I will see her again Wednesday if not discharged. Thank you.
[2018-04-15] MEDS: FERROUS SULFATE 325 MG TABLET PO SCH ×2 (08:40→17:20)
--- NOTE | 2018-04-15 10:11 | PDOC CONSULTATION ---
History of Present Illness Admission Date/PCP: 04/13/18 13:41 FCO WARREN PA-C Patient complains of: anemia History of Present Illness: DESMOND HERNANDEZ is a 78 year old female medical history significant for remote DVT, CVA without continued deficits, epilepsy (not on antiseizure medications; last seizure several years ago), hypertension, and chronic anemia who presented to the emergency department today with a complaint of 3 weeks of dyspnea on exertion and 3-4 days of generalized weakness and fatigue. The patient reports that she was in the emergency department in November of this year and received blood transfusion products at that time. Per patient's grandson, she has had at least 2 other episodes of anemia requiring blood transfusions over the last 5-10 years. Neither of them can recall what additional workup has been done to identify the cause of her anemia. Last colonoscopy approximately 2 years ago and reported to be normal, EGD decades ago with unknown results. Past Medical History Cardiac Medical History: Reports: Hypertension Pulmonary Medical History: Reports: Asthma, Chronic Obstructive Pulmonary Disease (COPD) EENT Medical History: Reports: None Neurological Medical History: Reports: Ischemic CVA, Seizures Endocrine Medical History: Reports: Diabetes Mellitus Type 2 Renal/ Medical History: Reports: None Malignancy Medical History: Reports: None GI Medical History: Reports: None Musculoskeltal Medical History: Reports: Arthritis Skin Medical History: Reports: None Psychiatric Medical History: Reports: None Traumatic Medical History: Reports: None, Other - Multiple broken bones in the past Hematology: Reports: Anemia Infectious Medical History: Reports: None Past Surgical History Past Surgical History: Reports: Appendectomy, Cholecystectomy, Orthopedic Surgery - right hip replacement, right knee replacement, right shoulder, Tubal Ligation Social History Lives with: Family Smoking Status: Former Smoker Last Time Smoked: 30 years ago Frequency of Alcohol Use: None Hx Recreational Drug Use: No Drugs: None Hx Prescription Drug Abuse: No - Advance Directive Resuscitation Status: Full Code Family History Family History: Reviewed & Not Pertinent Parental Family History Reviewed: No Children Family History Reviewed: No Sibling(s) Family History Reviewed.: No Medication/Allergy Home Medications: Aspirin [Aspirin EC] 81 mg PO DAILY 04/13/18 Furosemide 20 mg PO BID 04/13/18 Meloxicam 7.5 mg PO BID 04/13/18 Metformin HCl 1,000 mg PO BID 04/13/18 Multivit-Min/Iron/Folic/[id number] [Hair, Skin and Nails Tablet] 1 each PO DAILY Oxybutynin Chloride [Ditropan 5 Mg Tablet] 5 mg PO BID 04/13/18 Allergies/Adverse Reactions: hydromorphone [From Dilaudid] Allergy (Verified 04/13/18 15:32) Penicillins Allergy (Verified 04/13/18 15:32) contrast dye Allergy (Uncoded 04/13/18 15:32) Physical Exam Vital Signs: Temp Pulse Resp BP Pulse Ox 98.3 F 52 L 19 126/56 H 100 04/15/18 08:00 04/15/18 08:00 04/15/18 08:00 04/15/18 08:00 04/15/18 08:00 Intake & Output 04/14/18 04/15/18 04/16/18 06:59 06:59 06:59 Intake Total 1182 917 Output Total 350 2900 Balance 832 -1982 Weight 83 kg 84.3 kg General appearance: PRESENT: no acute distress Eye exam: PRESENT: EOMI Mouth exam: PRESENT: neck supple Neck exam: PRESENT: full ROM Respiratory exam: PRESENT: clear to auscultation jermaine Cardiovascular exam: PRESENT: irregular rhythm GI/Abdominal exam: PRESENT: normal bowel sounds, soft Extremities exam: PRESENT: full ROM Musculoskeletal exam: PRESENT: full ROM Skin exam: PRESENT: warm Results Laboratory Results: 04/15/18 05:43 04/14/18 07:10 04/14/18 04/14/18 04/15/18 13:54 19:40 05:43 WBC 5.8 5.3 RBC 4.16 4.21 Hgb 7.8 L 8.1 L Hct 25.1 L 25.7 L MCV 60 L 61 L MCH 18.8 L 19.1 L MCHC 31.2 L 31.3 L RDW 35.8 H 36.6 H Plt Count 131 L 132 L Stool Occult Blood POSITIVE Impressions: Chest X-Ray 04/13/18 10:19 IMPRESSION: Cardiomegaly. Lungs clear. Assessment & Plan - Diagnosis (1) Anemia Qualifiers: Anemia type: iron deficiency Iron deficiency anemia type: chronic blood loss Qualified Code(s): D50.0 - Iron deficiency anemia secondary to blood loss (chronic) Is this a current diagnosis for this admission?: Yes - Plan Summary Plan Summary: A/ Chronic anemia, severe Heme positive stools Previous endoscopies alll negaitve in the past P/ EGD and colonoscOpy with biopsy in am BOWEL PREP PROCEDURE D/W PATIENT WITH RISKS AND SHE AGREES WITH PROCEDURES.
[2018-04-15] MEDS: DOCUSATE SODIUM 100 MG CAPSULE PO SCH ×2 (11:31→17:20)
[2018-04-15] MEDS: ASPIRIN 81 MG TABLET, CHEWABLE PO SCH (11:32)
[2018-04-15] MEDS: FAMOTIDINE 20 MG TABLET PO SCH ×2 (11:32→22:23)
[2018-04-15] MEDS: OXYBUTYNIN CHLORIDE 5 MG TABLET PO SCH ×2 (11:32→17:20)
--- NOTE | 2018-04-15 12:28 | RADIOLOGY REPORT (SQ) ---
EXAM DESCRIPTION: VENOUS UNILATERAL LOWER COMPLETED DATE/TIME: 04/15/2018 12:01 pm REASON FOR STUDY: LLE pain and edema I48.91 UNSPECIFIED ATRIAL FIBRILLATION D50.9 IRON DEFICIENCY ANEMIA, UNSPECIFIED COMPARISON: None. TECHNIQUE: Dynamic and static galvan scale and color images acquired of the left leg venous system. Se lected spectral images acquired with additional compression and augmentation maneuvers. The contralat eral common femoral vein and saphenofemoral junction were also imaged. Images stored on PACS. LIMITATIONS: None. FINDINGS: COMMON FEMORAL: Normal phasicity, compression and augmentation. No visualized echogenic ma terial on galvan scale. No defects on color images. FEMORAL: Normal compression and augmentation. No visualized echogenic material on galvan scale. No defe cts on color images. POPLITEAL: Normal compression, augmentation. No visualized echogenic material on galvan scale. No defec ts on color images. CALF VESSELS: Normal compression, augmentation. No visualized echogenic material on galvan scale. No de fects on color images. GSV and SSV: Normal compression, augmentation. No visualized echogenic material on galvan scale. No def ects on color images. ANY DEEP VENOUS INSUFFICIENCY: Not evaluated. ANY EVIDENCE OF POPLITEAL CYST: No. OTHER: No other significant finding. CONTRALATERAL COMMON FEMORAL VEIN AND SAPHENOFEMORAL JUNCTION: Normal phasicity, compression and augmentation. No visualized echogenic material on galvan scale. No de fects on color images. IMPRESSION: NO EVIDENCE OF DVT OR SVT IN THE LEFT LEG. TECHNICAL DOCUMENTATION: JOB ID: [id number] [employer]- All Rights Reserved Reading location - IP/workstation name: [email or web address]
--- NOTE | 2018-04-15 17:03 | PDOC PROGRESS REPORT ---
Subjective Progress Note for:: 04/15/18 Subjective:: DESMOND HERNANDEZ is a 78 year old female with a past medical history significant for remote DVT, CVA without continued deficits, epilepsy (not on antiseizure medications; last seizure several years ago), hypertension, and chronic anemia who was admitted on 04/13/18 for profound anemia and new atrial fibrillation. Patient is seen on Morning rounds. She is found sitting comfortably in the recliner on room air. She states that she is feeling much better today. She reports that she is pleased to have met with both the mapping technician and surgeon; thankful that we are making attempts to identify the source of her anemia. She understands the plan is to undergo EGD and colonoscopy tomorrow. She denies fever, chills, fatigue, chest pain, palpitations, orthopnea, dyspnea , cough, abdominal pain, lower leg edema. She has no new questions or concerns. Reason For Visit: IRON DEFICIENCY ANEMIA,ATRIAL FIBRILLATION Physical Exam Vital Signs: Temp Pulse Resp BP Pulse Ox 97.8 F 61 18 129/56 H 100 04/15/18 16:00 04/15/18 16:00 04/15/18 16:00 04/15/18 16:00 04/15/18 16:00 Intake & Output 04/14/18 04/15/18 04/16/18 06:59 06:59 06:59 Intake Total 1182 917 Output Total 350 2900 Balance 832 -1982 Weight 83 kg 84.3 kg General appearance: PRESENT: no acute distress, obese, well-developed, well- nourished Head exam: PRESENT: atraumatic, normocephalic Eye exam: PRESENT: conjunctiva pink, EOMI, PERRLA. ABSENT: scleral icterus Mouth exam: PRESENT: moist, tongue midline Neck exam: ABSENT: carotid bruit, JVD, lymphadenopathy, thyromegaly Respiratory exam: PRESENT: clear to auscultation jermaine, symmetrical, unlabored. ABSENT: rales, rhonchi, wheezes Cardiovascular exam: PRESENT: RRR, +S1, +S2, systolic murmur. ABSENT: diastolic murmur, rubs Pulses: PRESENT: normal dorsalis pedis pul Vascular exam: PRESENT: normal capillary refill GI/Abdominal exam: PRESENT: normal bowel sounds, soft. ABSENT: distended, guarding, mass, organolmegaly, rebound, tenderness Rectal exam: PRESENT: heme (+) stool Extremities exam: PRESENT: full ROM. ABSENT: calf tenderness, clubbing, pedal edema Neurological exam: PRESENT: alert, awake, oriented to person, oriented to place , oriented to time, oriented to situation, CN II-XII grossly intact, other - Pleasant, forgetful. ABSENT: motor sensory deficit Psychiatric exam: PRESENT: appropriate affect, normal mood. ABSENT: homicidal ideation, suicidal ideation Skin exam: PRESENT: dry, intact, warm. ABSENT: cyanosis, rash Results Laboratory Results: 04/15/18 05:43 04/14/18 07:10 04/14/18 04/15/18 19:40 05:43 WBC 5.3 RBC 4.21 Hgb 8.1 L Hct 25.7 L MCV 61 L MCH 19.1 L MCHC 31.3 L RDW 36.6 H Plt Count 132 L Stool Occult Blood POSITIVE Impressions: Chest X-Ray 04/13/18 10:19 IMPRESSION: Cardiomegaly. Lungs clear. Venous Doppler Study 04/15/18 00:00 IMPRESSION: NO EVIDENCE OF DVT OR SVT IN THE LEFT LEG. Assessment & Plan - Diagnosis (1) Anemia Qualifiers: Anemia type: iron deficiency Iron deficiency anemia type: chronic blood loss Qualified Code(s): D50.0 - Iron deficiency anemia secondary to blood loss (chronic) Is this a current diagnosis for this admission?: Yes Plan: Improved; s/p 3 units PRBCs. Patient was admitted with symptomatic anemia; patient reports dyspnea on exertion 3 weeks with progressively worsening generalized weakness 3-4 days. The patient reports several incidences of anemia requiring blood transfusions; most recently in November when she received 2 units PRBC in our emergency department. Urinalysis negative for hematuria. Occult stool negative. Repeat stool is positive. 5.3--> 7.8--> 7.8--> 8.1 Iron 26, TIBC 457, ferritin 6.67 Folate and B12 are normal. The patient is admitted to the telemetry floor. She has received 3 units packed red blood cells. We will continue PPI. Heme/Onc is consulted; appreciate Dr. Camp's and Dr. Cary's recommendations. She received Feraheme x1. Initiated oral iron supplementation The registered dietitian is consulted for dietary recommendations. Fall precautions. PT/OT evaluation. (2) Generalized weakness Is this a current diagnosis for this admission?: Yes Plan: Secondary to profound anemia. Plan as above. (3) Atrial fibrillation Qualifiers: Atrial fibrillation type: unspecified Qualified Code(s): I48.91 - Unspecified atrial fibrillation Is this a current diagnosis for this admission?: Yes Plan: Currently in sinus rhythm. Upon arrival to the emergency department, the patient was noted to be in atrial fibrillation. This is new to the patient; during previous emergency department visit in November 2017, patient was in sinus rhythm. Atrial fibrillation may be a result of significant anemia. She is rhythm unaware. Echocardiogram is benign; LVEF is normal, mild to moderate diastolic dysfunction , mild LVH [id number] score: 10.8% yearly stroke risk. HAS-BLED score: 8.9% (high risk) for major bleeding events. Will defer chronic anticoagulation at this time as the patient currently has a Hgb of 5.3 with unconfirmed cause of anemia. Patient is hypertensive (148/69). Patient with history of asthma. Therefore; she was started on po diltiazem, converted to sinus rhyth. M Have resumed baby aspirin; will monitor closely for bleeding. Will need to discuss further with the patient (and family members) the risks and benefits of chronic anticoagulation. Would advise against this given the patient's age, weakness, history of falls, tendency for low hemoglobin and possible GI bleed. (4) Diabetes mellitus type 2 in obese Is this a current diagnosis for this admission?: Yes Plan: The patient is a type II diabetic who takes metformin as outpatient. Will hold metformin while inpatient. Hemoglobin A1c is 5.8%. Per patient of her age and life expectancy, less than 8 % would be acceptable. Consistent carb diet. Accu-Cheks before meals and at bedtime with Humalog for sliding scale coverage. We will ask the registered dietitian to meet with the patient. We will discuss with the patient and her family members option of reduced dose/ discontinuation of diabetic medications to prevent hypoglycemia in the elderly. (5) Lower leg pain Qualifiers: Laterality: left Qualified Code(s): M79.662 - Pain in left lower leg Is this a current diagnosis for this admission?: Yes Plan: Resolved. The patient reports left lower leg tenderness and edema. She states that the discomfort developed overnight. She believes she has a history of DVTs. Her left calf is noted to be more edematous to her right. This may be related to holding Lasix initially and dependency edema after receiving IV fluids and blood products. Doppler U/S negative for SVT/DVT. Will resume lasix; 20 mg po daily - Time Time Spent with patient: 15-24 minutes Medications reviewed and adjusted accordingly: Yes Anticipated discharge: Home Within: within 48 hours
[2018-04-15] MEDS: FUROSEMIDE 20 MG TABLET PO SCH (17:20)
[2018-04-15] MEDS ORDERED: BISACODYL 5 MG TABEC PO ONE ×2 (18:30→22:15)
[2018-04-15] MEDS ORDERED: PEG 3350/NA SULF,BICARB,CL/KCL 4000 ML PO ONE (19:00)
[2018-04-16] MEDS: LANSOPRAZOLE 15 MG TAB.RAP.DR PO SCH (06:50)
[2018-04-16] MEDS: DILTIAZEM HCL 30 MG TABLET PO SCH ×3 (06:50→22:27)
[2018-04-16 07:09] LABS: HEMATOCRIT 28.1 % (36.0-47.0); HEMOGLOBIN 8.6 g/dL (12.0-15.5); MEAN CORPUSCULAR HEMOGLOBIN 18.7 pg (27.0-33.4); MEAN CORPUSCULAR HGB CONC 30.5 g/dL (32.0-36.0); PLATELET COUNT 147 10^3/uL (150-450); RED CELL DISTRIBUTION WIDTH 36.8 % (11.5-14.0)
[2018-04-16 07:18] LABS: MEAN CORPUSCULAR VOLUME 61 fl (80-97)
[2018-04-16] MEDS ORDERED: DIPHENHYDRAMINE HCL 50 MG/ML VIAL ONE (08:41)
[2018-04-16] MEDS ORDERED: ONDANSETRON HCL INJ/PF 4 MG/2 ML SDV ONE (08:41)
[2018-04-16] MEDS ORDERED: NALOXONE HCL INJ/PF 0.4 MG/1 ML SDV ONE (08:42)
[2018-04-16] MEDS ORDERED: MIDAZOLAM 2 MG/2 ML INJ ONE (08:42)
[2018-04-16] MEDS ORDERED: EPINEPHRINE INJ 1 MG/10 ML DISP.SYRIN ONE (08:43)
[2018-04-16] MEDS ORDERED: GLUCAGON,HUMAN RECOMB 1 MG INJ ONE (08:43)
[2018-04-16] MEDS ORDERED: FLUMAZENIL INJ 0.5 MG/5 ML VIAL ONE (08:43)
[2018-04-16] MEDS: MIDAZOLAM 2 MG/2 ML INJ ONE ×5 (09:26→09:38)
[2018-04-16] MEDS: FENTANYL CITRATE INJ/PF 100 MCG/2 ML AMPUL ONE ×5 (09:28→09:45)
--- NOTE | 2018-04-16 10:40 | Operative Report ---
Nonrecallable Operative Report DATE OF SURGERY: 04/16/18 PREOPERATIVE DIAGNOSIS: anemia chronic. heme positive stools POSTOPERATIVE DIAGNOSIS: same. mild antritis. moderate distal left colon and sigmoid diverticulosis OPERATION: EGD with bx. Colonoscopy to cecum SURGEON: WALLY CALDERON ANESTHESIA: Moderate Sedation - provoided by Dr. Calderon (Versed 3 mg; Fentanyl 1.5 mcg) TISSUE REMOVED OR ALTERED: bx antral mucosa COMPLICATIONS: none ESTIMATED BLOOD LOSS: none INTRAOPERATIVE FINDINGS: mild antritis. moderate diffuse distal left colon and sigmoid diverticulosis PROCEDURE: see dictation
[2018-04-16] MEDS: FERROUS SULFATE 325 MG TABLET PO SCH (11:05)
[2018-04-16] MEDS: ASPIRIN 81 MG TABLET, CHEWABLE PO SCH (11:06)
[2018-04-16] MEDS: FAMOTIDINE 20 MG TABLET PO SCH ×2 (11:06→22:27)
[2018-04-16] MEDS: DOCUSATE SODIUM 100 MG CAPSULE PO SCH ×2 (11:07→17:19)
[2018-04-16] MEDS: OXYBUTYNIN CHLORIDE 5 MG TABLET PO SCH ×2 (11:07→17:19)
--- NOTE | 2018-04-16 12:19 | PDOC CONSULTATION ---
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 Upon presentation she was hypotensive, was intubated for a period of time, was septic for a period of time, INR was elevated upon admission , thereafter imaging indicated a large left retroperitoneal hematoma. Anticoagulation was stopped on admission and this hematomas followed. Of note she did have a fall to the right side and developed a hematoma prior to admission involving the right upper arm. She also tells me she remembers a few weeks prior to also have vaginal bleeding and Eliquis was held for a period of time for that as well. She did have lower extremity Dopplers upon admission and they were negative for any DVT currently. She is very weak now, but getting a little bit stronger, she does reside at [facility], but does appear she is going to need aggressive rehab to get back to where she was before. Apparently dialysis is running very well without any problems so we noted that the Eliquis was not for that issue. Past Medical History Cardiac Medical History: Reports: Hypertension Pulmonary Medical History: Reports: Asthma, Chronic Obstructive Pulmonary Disease (COPD) EENT Medical History: Reports: None Neurological Medical History: Reports: Ischemic CVA, Seizures Endocrine Medical History: Reports: Diabetes Mellitus Type 2 Renal/ Medical History: Reports: None Malignancy Medical History: Reports: None GI Medical History: Reports: None Musculoskeltal Medical History: Reports: Arthritis Skin Medical History: Reports: None Psychiatric Medical History: Reports: None Traumatic Medical History: Reports: None, Other - Multiple broken bones in the past Hematology: Reports: Anemia Infectious Medical History: Reports: None Past Surgical History Past Surgical History: Reports: Appendectomy, Cholecystectomy, Orthopedic Surgery - right hip replacement, right knee replacement, right shoulder, Tubal Ligation Denies: Hysterectomy Social History Lives with: Family Smoking Status: Former Smoker Last Time Smoked: 30 years ago Frequency of Alcohol Use: None Hx Recreational Drug Use: No Drugs: None Hx Prescription Drug Abuse: No - Advance Directive Resuscitation Status: Full Code Family History Family History: Reviewed & Not Pertinent Parental Family History Reviewed: Yes Children Family History Reviewed: Yes Sibling(s) Family History Reviewed.: Yes Medication/Allergy Home Medications: Aspirin [Aspirin EC] 81 mg PO DAILY 04/13/18 Furosemide 20 mg PO BID 04/13/18 Meloxicam 7.5 mg PO BID 04/13/18 Metformin HCl 1,000 mg PO BID 04/13/18 Multivit-Min/Iron/Folic/[id number] [Hair, Skin and Nails Tablet] 1 each PO DAILY Oxybutynin Chloride [Ditropan 5 Mg Tablet] 5 mg PO BID 04/13/18 Allergies/Adverse Reactions: hydromorphone [From Dilaudid] Allergy (Verified 04/13/18 15:32) Penicillins Allergy (Verified 04/13/18 15:32) contrast dye Allergy (Uncoded 04/13/18 15:32) Review of Systems Constitutional: ABSENT: chills, fever(s), headache(s), weight gain, weight loss Eyes: ABSENT: visual disturbances Ears: ABSENT: hearing changes Cardiovascular: ABSENT: chest pain, dyspnea on exertion, edema, orthropnea, palpitations Respiratory: ABSENT: cough, hemoptysis Gastrointestinal: ABSENT: abdominal pain, constipation, diarrhea, hematemesis, hematochezia, nausea, vomiting Genitourinary: ABSENT: dysuria, hematuria Musculoskeletal: ABSENT: joint swelling Integumentary: ABSENT: rash, wounds Neurological: ABSENT: abnormal gait, abnormal speech, confusion, dizziness, focal weakness, syncope Psychiatric: ABSENT: anxiety, depression, homidical ideation, suicidal ideation Endocrine: ABSENT: cold intolerance, heat intolerance, polydipsia, polyuria Hematologic/Lymphatic: ABSENT: easy bleeding, easy bruising Physical Exam Vital Signs: Temp Pulse Resp BP Pulse Ox 97.7 F 59 L 12 139/46 H 98 04/16/18 08:27 04/16/18 10:35 04/16/18 10:35 04/16/18 10:35 04/16/18 10:35 Intake & Output 04/15/18 04/16/18 04/17/18 06:59 06:59 06:59 Intake Total 917 960 450 Output Total 2900 750 Balance -1983 210 450 Weight 84.3 kg General appearance: PRESENT: no acute distress, well-developed, well-nourished Head exam: PRESENT: atraumatic, normocephalic Eye exam: PRESENT: conjunctiva pink, EOMI, PERRLA. ABSENT: scleral icterus Ear exam: PRESENT: normal external ear exam Mouth exam: PRESENT: moist, tongue midline Neck exam: ABSENT: carotid bruit, JVD, lymphadenopathy, thyromegaly Respiratory exam: PRESENT: clear to auscultation jermaine. ABSENT: rales, rhonchi, wheezes Cardiovascular exam: PRESENT: RRR. ABSENT: diastolic murmur, rubs, systolic murmur Pulses: PRESENT: normal dorsalis pedis pul Vascular exam: PRESENT: normal capillary refill GI/Abdominal exam: PRESENT: normal bowel sounds, soft. ABSENT: distended, guarding, mass, organolmegaly, rebound, tenderness Rectal exam: PRESENT: deferred Extremities exam: PRESENT: full ROM. ABSENT: calf tenderness, clubbing, pedal edema Neurological exam: PRESENT: alert, awake, oriented to person, oriented to place , oriented to time, oriented to situation, CN II-XII grossly intact. ABSENT: motor sensory deficit Psychiatric exam: PRESENT: appropriate affect, normal mood. ABSENT: homicidal ideation, suicidal ideation Skin exam: PRESENT: dry, intact, warm. ABSENT: cyanosis, rash Results Laboratory Results: 04/16/18 05:29 04/14/18 07:10 04/16/18 05:29 WBC 7.0 RBC 4.60 Hgb 8.6 L Hct 28.1 L MCV 61 L MCH 18.7 L MCHC 30.5 L RDW 36.8 H Plt Count 147 L Impressions: Chest X-Ray 04/13/18 10:19 IMPRESSION: Cardiomegaly. Lungs clear. Venous Doppler Study 04/15/18 00:00 IMPRESSION: NO EVIDENCE OF DVT OR SVT IN THE LEFT LEG. Assessment & Plan - Diagnosis (1) Other pulmonary embolism without acute cor pulmonale Qualifiers: Chronicity: chronic Qualified Code(s): I27.82 - Chronic pulmonary embolism Is this a current diagnosis for this admission?: Yes Plan: History of chronic PE, she would require lifelong anticoagulation but given her hematoma and increased size of hematoma on CT imaging done yesterday, I think the risk of bleeding outweighs the benefit of preventing a recurrent thrombotic event. At this point would hold any anticoagulation for at least a month to ensure that bleeding further does not occur. Within 2-3 months of discharge would recommend repeating CT of the abdomen pelvis to ensure that the hematoma stable. Thereafter we could consider restarting anticoagulation based upon patient and family wishes. - Time Time Spent: Greater than 70 Minutes - Inpatient Certification Based on my medical assessment, after consideration of the patient's comorbidities, presenting symptoms, or acuity I expect that the services needed warrant INPATIENT care.: Yes I certify that my determination is in accordance with my understanding of Medicare's requirements for reasonable and necessary INPATIENT services [42 CFR 412.3e].: Yes Medical Necessity: Risk of Complication if Not Cared For in Hospital
--- NOTE | 2018-04-16 12:24 | PDOC PROGRESS REPORT ---
Subjective Progress Note for:: 04/16/18 Subjective:: Please note that the consultation placed right before this note was placed under the wrong patient, have contacted IT to remove that note, below is the appropriate note for this patient. Patient notes that her energy levels improved after transfusion and IV iron, has had repeated transfusion over the last 1-2 years. Discussed case with general surgeon who noted that there is extensive diverticulitis that probably is the area of previous bleeding. But there is no ulceration AVM or malignancy noted. Reason For Visit: IRON DEFICIENCY ANEMIA,ATRIAL FIBRILLATION Physical Exam Vital Signs: Temp Pulse Resp BP Pulse Ox 97.7 F 59 L 12 139/46 H 98 04/16/18 08:27 04/16/18 10:35 04/16/18 10:35 04/16/18 10:35 04/16/18 10:35 Intake & Output 04/15/18 04/16/18 04/17/18 06:59 06:59 06:59 Intake Total 917 960 450 Output Total 2900 750 Balance -1983 210 450 Weight 84.3 kg General appearance: PRESENT: no acute distress, well-developed, well-nourished Head exam: PRESENT: atraumatic, normocephalic Eye exam: PRESENT: conjunctiva pink, EOMI, PERRLA. ABSENT: scleral icterus Ear exam: PRESENT: normal external ear exam Mouth exam: PRESENT: moist, tongue midline Neck exam: ABSENT: carotid bruit, JVD, lymphadenopathy, thyromegaly Respiratory exam: PRESENT: clear to auscultation jermaine. ABSENT: rales, rhonchi, wheezes Cardiovascular exam: PRESENT: RRR. ABSENT: diastolic murmur, rubs, systolic murmur Pulses: PRESENT: normal dorsalis pedis pul Vascular exam: PRESENT: normal capillary refill GI/Abdominal exam: PRESENT: normal bowel sounds, soft. ABSENT: distended, guarding, mass, organolmegaly, rebound, tenderness Rectal exam: PRESENT: deferred Extremities exam: PRESENT: full ROM. ABSENT: calf tenderness, clubbing, pedal edema Neurological exam: PRESENT: alert, awake, oriented to person, oriented to place , oriented to time, oriented to situation, CN II-XII grossly intact. ABSENT: motor sensory deficit Psychiatric exam: PRESENT: appropriate affect, normal mood. ABSENT: homicidal ideation, suicidal ideation Skin exam: PRESENT: dry, intact, warm. ABSENT: cyanosis, rash Results Laboratory Results: 04/16/18 05:29 04/14/18 07:10 04/16/18 05:29 WBC 7.0 RBC 4.60 Hgb 8.6 L Hct 28.1 L MCV 61 L MCH 18.7 L MCHC 30.5 L RDW 36.8 H Plt Count 147 L Impressions: Chest X-Ray 04/13/18 10:19 IMPRESSION: Cardiomegaly. Lungs clear. Venous Doppler Study 04/15/18 00:00 IMPRESSION: NO EVIDENCE OF DVT OR SVT IN THE LEFT LEG. Assessment & Plan - Diagnosis (1) Anemia Qualifiers: Anemia type: iron deficiency Iron deficiency anemia type: chronic blood loss Qualified Code(s): D50.0 - Iron deficiency anemia secondary to blood loss (chronic) Is this a current diagnosis for this admission?: Yes Plan: Chronic blood loss likely related to diverticulitis, patient will need to follow with us as an outpatient to monitor her hemoglobin closely and give IV iron as needed. Plan to give 1 more dose of Feraheme tomorrow that will complete her IV iron needs. Discontinue oral iron because I think that will cause increased constipation and worsening of the diverticulitis. - Time Time Spent with patient: 25-34 minutes
--- NOTE | 2018-04-16 16:16 | PDOC PROGRESS REPORT ---
Subjective Progress Note for:: 04/16/18 Subjective:: DESMOND HERNANDEZ is a 78 year old female with a past medical history significant for remote DVT, CVA without continued deficits, epilepsy (not on antiseizure medications; last seizure several years ago), hypertension, and chronic anemia who was admitted on 04/13/18 for profound anemia and new atrial fibrillation. Patient is seen on Morning rounds with her granddaughter present /primary weigher alloy . Upon entering the room, she is found to be resting comfortably on room air. She is sleeping and granddaughter asks that I do not wake her has she has just fallen asleep. Granddaughter states that she was able to speak with both Dr. Lindsey and Dr. Camp this morning. She reports that her grandmother is feeling much better today; improved energy, dyspnea has resolved , no pain. The patient granddaughter utilizes this time to raise concerns regarding possible dementia. She describes forgetfulness at home and labile mood. She is concerned that the patient called her late last night especially confused as to where she was. We discussed that I have noted signs of early dementia. We talked about how acute illnesses, profound anemia, and hospital admissions can exacerbate confusion. Recommended that she talk with the patient's primary care provider for formal dementia screening and briefly reviewed risks and benefits of the medications (specifically Aricept and Namenda). The granddaughter also reports that she would be very interested in physical therapy and home health referral if patient qualifies. No other questions or concerns today. Reason For Visit: IRON DEFICIENCY ANEMIA,ATRIAL FIBRILLATION Physical Exam Vital Signs: Temp Pulse Resp BP Pulse Ox 97.6 F 62 13 145/50 H 100 04/16/18 11:44 04/16/18 14:00 04/16/18 11:44 04/16/18 11:44 04/16/18 11:44 Intake & Output 04/15/18 04/16/18 04/17/18 06:59 06:59 06:59 Intake Total 917 960 450 Output Total 2900 750 Balance -1983 210 450 Weight 84.3 kg General appearance: PRESENT: no acute distress, well-developed, well-nourished, other Head exam: PRESENT: atraumatic, normocephalic Eye exam: ABSENT: scleral icterus Ear exam: PRESENT: normal external ear exam Mouth exam: PRESENT: moist, tongue midline Neck exam: ABSENT: carotid bruit, JVD, lymphadenopathy, thyromegaly Respiratory exam: PRESENT: clear to auscultation jermaine, symmetrical, unlabored. ABSENT: rales, rhonchi, wheezes Cardiovascular exam: PRESENT: RRR, +S1, +S2. ABSENT: diastolic murmur, rubs, systolic murmur Pulses: PRESENT: normal dorsalis pedis pul Vascular exam: PRESENT: normal capillary refill GI/Abdominal exam: PRESENT: normal bowel sounds, soft. ABSENT: distended, guarding, mass, organolmegaly, rebound, tenderness Rectal exam: PRESENT: deferred Extremities exam: ABSENT: calf tenderness, clubbing, pedal edema Neurological exam: PRESENT: other - Sleeping soundly. ABSENT: motor sensory deficit Psychiatric exam: ABSENT: homicidal ideation, suicidal ideation Skin exam: PRESENT: dry, intact, warm. ABSENT: cyanosis, rash Results Laboratory Results: 04/16/18 05:29 04/14/18 07:10 04/16/18 05:29 WBC 7.0 RBC 4.60 Hgb 8.6 L Hct 28.1 L MCV 61 L MCH 18.7 L MCHC 30.5 L RDW 36.8 H Plt Count 147 L Impressions: Chest X-Ray 04/13/18 10:19 IMPRESSION: Cardiomegaly. Lungs clear. Venous Doppler Study 04/15/18 00:00 IMPRESSION: NO EVIDENCE OF DVT OR SVT IN THE LEFT LEG. Assessment & Plan - Diagnosis (1) Anemia Qualifiers: Anemia type: iron deficiency Iron deficiency anemia type: chronic blood loss Qualified Code(s): D50.0 - Iron deficiency anemia secondary to blood loss (chronic) Is this a current diagnosis for this admission?: Yes Plan: Improved; s/p 3 units PRBCs. Patient was admitted with symptomatic anemia; patient reports dyspnea on exertion 3 weeks with progressively worsening generalized weakness 3-4 days. The patient reports several incidences of anemia requiring blood transfusions; most recently in November when she received 2 units PRBC in our emergency department. Urinalysis negative for hematuria. Occult stool negative. Repeat stool is positive. 5.3--> 7.8--> 7.8--> 8.1--> 8.6 Iron 26, TIBC 457, ferritin 6.67 Folate and B12 are normal. The patient is admitted to the telemetry floor. She has received 3 units packed red blood cells. We will continue PPI. Heme/Onc is consulted; appreciate Dr. Camp's and Dr. Cary's recommendations. She received Feraheme x1. To repeat iron infusion per Dr. Camp. The registered dietitian is consulted for dietary recommendations. Fall precautions. PT/OT evaluation. (2) Generalized weakness Is this a current diagnosis for this admission?: Yes Plan: Secondary to profound anemia. Plan as above. (3) Atrial fibrillation Qualifiers: Atrial fibrillation type: unspecified Qualified Code(s): I48.91 - Unspecified atrial fibrillation Is this a current diagnosis for this admission?: Yes Plan: Currently in sinus rhythm. Upon arrival to the emergency department, the patient was noted to be in atrial fibrillation. This is new to the patient; during previous emergency department visit in November 2017, patient was in sinus rhythm. Atrial fibrillation may be a result of significant anemia. She is rhythm unaware. Echocardiogram is benign; LVEF is normal, mild to moderate diastolic dysfunction , mild LVH [id number] score: 10.8% yearly stroke risk. HAS-BLED score: 8.9% (high risk) for major bleeding events. Will defer chronic anticoagulation at this time as the patient currently has a Hgb of 5.3 Patient is hypertensive (148/69). Patient with history of asthma. Therefore; she was started on po diltiazem, converted to sinus rhythm. Have resumed baby aspirin; will monitor closely for bleeding. Discussed risks and benefits of chronic anticoagulation with the patient's granddaughter. Recommend holding anticoagulant at this time; may discuss at follow-up appointment with Heme/Onc [place] right now out of 1 month. (4) Diabetes mellitus type 2 in obese Is this a current diagnosis for this admission?: Yes Plan: The patient is a type II diabetic who takes metformin as outpatient. Will hold metformin while inpatient. Hemoglobin A1c is 5.8%. Per patient of her age and life expectancy, less than 8 % would be acceptable. Consistent carb diet. As the hemoglobin A1c is appropriate and Highest glucose noted since admission is 153 (average 112-120); we will discontinue Accu-Cheks. We will ask the registered dietitian to meet with the patient. We will discuss with the patient and her family members option of reduced dose/ discontinuation of diabetic medications to prevent hypoglycemia in the elderly. (5) Lower leg pain Qualifiers: Laterality: left Qualified Code(s): M79.662 - Pain in left lower leg Is this a current diagnosis for this admission?: Yes Plan: Resolved. The patient reports left lower leg tenderness and edema. She states that the discomfort developed overnight. She believes she has a history of DVTs. Her left calf is noted to be more edematous to her right. This may be related to holding Lasix initially and dependency edema after receiving IV fluids and blood products. Doppler U/S negative for SVT/DVT. Will resume lasix; 20 mg po daily - Time Time Spent with patient: 25-34 minutes Medications reviewed and adjusted accordingly: Yes Anticipated discharge: Home Within: within 24 hours
--- NOTE | 2018-04-16 18:35 | OPERATIVE REPORT E ---
Operative Report NAME: DESMOND HERNANDEZ : 1940 AGE: 78Y DATE OF SURGERY: 04/16/2018 ROOM: 403 PREOPERATIVE DIAGNOSES: 1. ANEMIA. 2. HEME-POSITIVE STOOLS. POSTOPERATIVE DIAGNOSES: 1. ANEMIA. 2. HEME-POSITIVE STOOLS. 3. MILD ANTRITIS. 4. SIGMOID AND LEFT COLON DIFFUSE DIVERTICULOSIS. 5. INTERNAL HEMORRHOIDS. OPERATION: 1. EGD with biopsy. 2. Colonoscopy to cecum. SURGEON: WALLY LINDSEY M.D. SDV PILOT/NAVIGATOR/DDS OPERATOR: None. ESTIMATED BLOOD LOSS: Minimal. ANESTHESIA: IV conscious sedation provided by Dr. Lindsey, 6 mg of Versed, 1.5 mcg of fentanyl. INDICATIONS AND FINDINGS: A 78-year-old female admitted for difficulty breathing, lightheadedness and weakness, found to have severe anemia with a hemoglobin of 5. The patient was transfused, with the hemoglobin increased to slightly above 8. Her stools were heme-negative on admission; however, they became heme-positive during the hospitalization. Decision was made to perform EGD and colonoscopy to identify the cause of the anemia. PROCEDURE: The procedure was done in the procedure room, and the patient was placed in lateral decubitus. IV sedation as above. The gastroscope was inserted through the mouth, advanced to the stomach and duodenum. Preparation was good. No masses, polyps, strictures, indentations, or diverticular polyps identified. In the area of the antrum, mild mucosal changes were noted. Random biopsies were obtained for Helicobacter pylori and pathology. The instrument was then withdrawn into the stomach, and the lesser and greater curvature appeared to be normal. The instrument was retroflexed. The GE junction was competent. No lesions were noted in the fundus. As the instrument was passed through the GE junction; this appeared to be normal. The rest of the esophagus was normal, as well. The instrument was removed from the patient's mouth without difficulty. Colonoscopy was performed by inserting the scope through the rectum and up about 30 cm of the colon up to the cecum. Preparation was fair. No masses, polyps, strictures, indentations, or mucosal changes were noted. Diffuse scattered diverticulosis was noted in the distal left colon and rectosigmoid colon. At the level of the rectum, the instrument was retroflexed and internal hemorrhoids were noted. The instrument was removed from the patient. The patient tolerated the procedure well and was transferred to the recovery room in satisfactory condition. DICTATING PHYSICIAN: WALLY LINDSEY M.D. [id number] PHY#: [id number] ID: [id number] JOB#: [id number] ACCT: [id number] cc:WALLY LINDSEY M.D. > [facility]
[2018-04-17 04:58] LABS: HEMATOCRIT 28.4 % (36.0-47.0); HEMOGLOBIN 8.7 g/dL (12.0-15.5); MEAN CORPUSCULAR HEMOGLOBIN 18.7 pg (27.0-33.4); MEAN CORPUSCULAR HGB CONC 30.5 g/dL (32.0-36.0); RED BLOOD COUNT 4.63 10^6/uL (3.72-5.28); RED CELL DISTRIBUTION WIDTH 37.1 % (11.5-14.0); WHITE BLOOD COUNT 5.4 10^3/uL (4.0-10.5)
[2018-04-17 06:12] LABS: MEAN CORPUSCULAR VOLUME 61 fl (80-97)
[2018-04-17 06:13] LABS: PLATELET COUNT 125 10^3/uL (150-450)
[2018-04-17] MEDS: DILTIAZEM HCL 30 MG TABLET PO SCH (06:40)
[2018-04-17] MEDS: LANSOPRAZOLE 15 MG TAB.RAP.DR PO SCH (06:40)
[2018-04-17] MEDS ORDERED: FUROSEMIDE 20 MG TABLET PO SCH (08:00)
[2018-04-17] MEDS ORDERED: FERUMOXYTOL (NON-ESRD) 510 MG/NS 100 ML IV ONE ×2 (10:00)
[2018-04-17] MEDS: OXYBUTYNIN CHLORIDE 5 MG TABLET PO SCH (10:15)
[2018-04-17] MEDS: DOCUSATE SODIUM 100 MG CAPSULE PO SCH (10:15)
[2018-04-17] MEDS: ASPIRIN 81 MG TABLET, CHEWABLE PO SCH (10:15)
[2018-04-17] MEDS: FAMOTIDINE 20 MG TABLET PO SCH (10:15)
[2018-04-17 14:51] VITALS: BP 146/46
--- NOTE | 2018-04-17 22:30 | PDOC DISCHARGE SUMMARY ---
General - Admit/Disc Date/PCP Admission Date/Primary Care Provider: 04/13/18 13:41 FCO WARREN PA-C Discharge Date: 04/17/18 - Discharge Diagnosis (1) Anemia Is this a current diagnosis for this admission?: Yes Summary: Patient was admitted with symptomatic anemia; patient reported dyspnea on exertion 3 weeks with progressively worsening generalized weakness 3-4 days. The patient report has had multiple similar incidences of anemia requiring blood transfusions; most recently in November when she received 2 units PRBC in our emergency department. Urinalysis negative for hematuria. Occult stool negative. Repeat stool is positive. Hgb 5.3--> 7.8--> 7.8--> 8.1--> 8.6-->8.7 Iron 26, TIBC 457, ferritin 6.67 Folate and B12 are normal. The patient was admitted to the telemetry floor. She was provided gentle IV fluids and transfused 3 units PRBC. She was prophylactically started on a PPI; which is continued at discharge. Hematology was consulted with recommendations for Feraheme x 2; pt is advised to follow up with Dr. Camp or Dr. Cary within 2-4 weeks to follow iron studies. Hematology advises against oral iron supplementation at this time. EGD revealed mild antritis and colonoscopy revealed diverticulosis. No active bleeding was identified. She was evaluated by physical therapy with recommendations for [facility] which was arranged prior to discharge. At time of discharge, the patient was in stable condition, tolerating a regular diet, maintaining oxygen saturations on room air. The patient's work up, inpatient treatment, and outpatient followup plan was discussed with her granddaughter, Neel, who is also her primary adult day care worker. (2) Generalized weakness Is this a current diagnosis for this admission?: Yes Summary: Secondary to anemia and debility. Home health Physical Therapy has been arranged. (3) Atrial fibrillation Is this a current diagnosis for this admission?: Yes Summary: Currently in sinus rhythm. Upon arrival to the emergency department, the patient was noted to be in atrial fibrillation. This is new to the patient; during previous emergency department visit in November 2017, patient was in sinus rhythm. Atrial fibrillation may be a result of significant anemia. She is rhythm unaware. Echocardiogram is benign; LVEF is normal, mild to moderate diastolic dysfunction , mild LVH [id number] score: 10.8% yearly stroke risk. HAS-BLED score: 8.9% yearly major bleeding events risk. She was placed on p.o. diltiazem with subsequent conversion back into a normal sinus rhythm. Following EGD/Colonoscopy, her baby asprin was resumed. We discussed risks and benefits of chronic anticoagulation with the patient's granddaughter. Recommended holding anticoagulant at this time; may discuss at follow-up appointment with Heme/Onc. Patient and family are in agreement. (4) Diabetes mellitus type 2 in obese Is this a current diagnosis for this admission?: Yes Summary: The patient is a type II diabetic who takes metformin as outpatient. Hemoglobin A1c is 5.8%. Per patient of her age and life expectancy, less than 8 % would be acceptable. Her metformin was held while inpatient. She was placed on a consistent carb diet. Highest glucose noted since admission is 153 (average 112-120). I discussed with the patient's granddaughter the possible considerations when discontinuing antidiabetic medications. She reported that she intended to hold metformin until their follow up with the Primary Care Provider to discuss alternate glucose control options. (5) Lower leg pain Is this a current diagnosis for this admission?: Yes Summary: Resolved. The patient reported left lower leg tenderness and edema. Doppler u/s was negative for SVT/DVT. (6) Antritis (stomach) Is this a current diagnosis for this admission?: Yes Summary: Continue PPI (7) Diverticulosis Is this a current diagnosis for this admission?: Yes - Additional Information Resuscitation Status: Full Code Discharge Diet: As Tolerated Discharge Activity: Activity As Tolerated, Balance Activity w/Rest Prescriptions: Diltiazem HCl [Cardizem 30 mg Tablet] 30 mg PO Q8 #90 tablet Docusate Sodium [Colace 100 mg Capsule] 100 mg PO BID #60 capsule Furosemide 20 mg PO ASDIR PRN #45 tablet PRN Reason: Omeprazole Magnesium [Prilosec Otc] 20 mg PO DAILY #30 tablet.dr Home Medications: Aspirin [Aspirin EC] 81 mg PO DAILY 04/13/18 Multivit-Min/Iron/Folic/[id number] [Hair, Skin and Nails Tablet] 1 each PO DAILY Oxybutynin Chloride [Ditropan 5 mg Tablet] 5 mg PO BID 04/13/18 Acetaminophen [Tylenol 325 mg Tablet] 650 mg PO Q4HP PRN tablet 04/17/18 Aspirin [Aspirin 81 mg Chewable Tablet] 81 mg PO DAILY tab.chew 04/17/18 Diltiazem HCl [Cardizem 30 mg Tablet] 30 mg PO Q8 #90 tablet 04/17/18 Docusate Sodium [Colace 100 mg Capsule] 100 mg PO BID #60 capsule 04/17/18 Furosemide 20 mg PO ASDIR PRN #45 tablet 04/17/18 Omeprazole Magnesium [Prilosec Otc] 20 mg PO DAILY #30 tablet. 04/17/18 History of Present Illness History of Present Illness: DESMOND HERNANDEZ is a 78 year old female with a past medical history significant for remote DVT, CVA without continued deficits, epilepsy (not on antiseizure medications; last seizure several years ago), hypertension, and chronic anemia who presented to the emergency department today with a complaint of 3 weeks of dyspnea on exertion and 3-4 days of generalized weakness and fatigue. The patient reports that she was in the emergency department in November of this year and received blood transfusion products at that time. Per patient's grandson, she has had at least 2 other episodes of anemia requiring blood transfusions over the last 5-10 years. Neither of them can recall what additional workup has been done to identify the cause of her anemia. Last colonoscopy approximately 2 years ago and reported to be normal, EGD decades ago with unknown results. Evaluation in the emergency department reveals the patient is in atrial fibrillation (new to patient), normal chest x-ray, hemoglobin of 5.3, mildly elevated proBNP, normal thyroid panel, essentially normal CMP, and a negative occult stool. She is referred to the hospitalist service for observational admission and management of anemia and new onset atrial fibrillation. Physical Exam Vital Signs: Temp Pulse Resp BP Pulse Ox 98.4 F 59 L 21 H 146/46 H 98 04/17/18 14:49 04/17/18 14:49 04/17/18 14:49 04/17/18 14:49 04/17/18 14:49 Intake & Output 04/16/18 04/17/18 04/18/18 06:59 06:59 06:59 Intake Total 960 690 Output Total 750 Balance 210 690 Weight 70.7 kg General appearance: PRESENT: no acute distress, cooperative, well-developed, well-nourished, other - Overwieght Head exam: PRESENT: atraumatic, normocephalic Eye exam: PRESENT: conjunctiva pink, EOMI, PERRLA. ABSENT: scleral icterus Ear exam: PRESENT: normal external ear exam Mouth exam: PRESENT: moist, tongue midline Neck exam: ABSENT: carotid bruit, JVD, lymphadenopathy, thyromegaly Respiratory exam: PRESENT: clear to auscultation jermaine, symmetrical, unlabored. ABSENT: rales, rhonchi, wheezes Cardiovascular exam: PRESENT: RRR, +S1, +S2, systolic murmur. ABSENT: diastolic murmur, rubs Pulses: PRESENT: normal dorsalis pedis pul Vascular exam: PRESENT: normal capillary refill GI/Abdominal exam: PRESENT: normal bowel sounds, soft. ABSENT: distended, guarding, mass, organolmegaly, rebound, tenderness Rectal exam: PRESENT: deferred Extremities exam: PRESENT: full ROM, pedal edema - trace bilaterally. ABSENT: calf tenderness, clubbing Neurological exam: PRESENT: alert, awake, oriented to person, oriented to place , oriented to time, oriented to situation, CN II-XII grossly intact, other - slightly forgetful; at baseline per family. ABSENT: motor sensory deficit Psychiatric exam: PRESENT: appropriate affect, normal mood. ABSENT: homicidal ideation, suicidal ideation Skin exam: PRESENT: dry, intact, warm. ABSENT: cyanosis, rash Results Laboratory Results: 04/17/18 04:20 04/14/18 07:10 04/17/18 04:20 WBC 5.4 RBC 4.63 Hgb 8.7 L Hct 28.4 L MCV 61 L MCH 18.7 L MCHC 30.5 L RDW 37.1 H Plt Count 125 L Impressions: Chest X-Ray 04/13/18 10:19 IMPRESSION: Cardiomegaly. Lungs clear. Venous Doppler Study 04/15/18 00:00 IMPRESSION: NO EVIDENCE OF DVT OR SVT IN THE LEFT LEG. Qualifiers - * PATIENT BEING DISCHARGED WITH ANY OF THE FOLLOWING DIAGNOSIS: No Plan Discharge Plan: Discharge to home in the care of her family with Home Health Physical Therapy. Follow up with Primary Care Provider within 1 week. Follow up with Dr. Camp (Hematology) in 2 to 4 weeks.
== END 2018-04-17 15:36 | disposition home health service (06) | DRG 812 ==
LOC: ER 10:05 → INTOOBSV 13:29 → EH 13:29 → OBSVTOIN 13:41 → 4N 14:45
PROVIDERS: ADMIT Internal Medicine; ATTEND Internal Medicine
PROC: 30233N1 Transfusion of Nonautologous Red Blood Cells into Peripheral Vein, Percutaneous Approach (ICD-10-PCS; 2018-04-13)
PROC: 0DB78ZX Excision of Stomach, Pylorus, Via Natural or Artificial Opening Endoscopic, Diagnostic (ICD-10-PCS; principal; 2018-04-16 09:00)
PROC: 0DJD8ZZ Inspection of Lower Intestinal Tract, Via Natural or Artificial Opening Endoscopic (ICD-10-PCS; 2018-04-16 09:00)
DX: D50.0 Iron deficiency anemia secondary to blood loss (chronic) (principal); K57.30 Diverticulosis of large intestine without perforation or abscess without bleeding; K29.60 Other gastritis without bleeding; R19.5 Other fecal abnormalities; K64.8 Other hemorrhoids; M79.662 Pain in left lower leg; I48.91 Unspecified atrial fibrillation; I10 Essential (primary) hypertension; G40.909 Epilepsy, unspecified, not intractable, without status epilepticus; M19.90 Unspecified osteoarthritis, unspecified site; E11.9 Type 2 diabetes mellitus without complications; J44.9 Chronic obstructive pulmonary disease, unspecified; Z96.641 Presence of right artificial hip joint; Z96.651 Presence of right artificial knee joint; Z96.611 Presence of right artificial shoulder joint; E66.9 Obesity, unspecified; Z86.73 Personal history of transient ischemic attack (TIA), and cerebral infarction without residual deficits; Z86.718 Personal history of other venous thrombosis and embolism; Z90.49 Acquired absence of other specified parts of digestive tract; Z98.51 Tubal ligation status; Z79.82 Long term (current) use of aspirin; Z88.5 Allergy status to narcotic agent; Z88.0 Allergy status to penicillin; Z91.041 Radiographic dye allergy status; Z79.84 Long term (current) use of oral hypoglycemic drugs; Z87.81 Personal history of (healed) traumatic fracture; Z87.891 Personal history of nicotine dependence
CPT/HCPCS: 36415; 36430; 43239; 45378; 71046; 80048; 80053; 81001; 82272; 82550; 82553; 82607; 82728; 82746; 82962; 83036; 83540; 83550; 83880; 84439; 84443; 84481; 84484; 85025; 85027; 85045; 86850; 86900; 86901; 86920; 88305; 88342; 93005; 93010; 93306; 93971; 99291; G0378; G8978-GP; G8979-GP; G8980-GP; G8987-GO; G8988-GO; G8989-GO; J0171; J1200; J1610; J2250; J2310; J2405; J3010; J3490; P9016; Q0138; S0119